=== PATIENT | male | born 1980 | race Caucasian/White ===

== ENCOUNTER 2023-01-12 14:54 | Outpatient (OUT) | payer OTHER, SELFPAY ==
[2023-01-12 15:26] LABS: Basophils Percent Auto 0.6 % (0.2-2.0); Eosinophils Absolute Auto 0.1 10^3/uL (0.0-0.7); Eosinophils Percent Auto 0.7 % (0.9-7.0); Hematocrit 40.1 % (42.0-54.0); Hemoglobin 12.8 g/dL (14.0-18.0); Immature Granulocytes Abs Auto 0.04 10^3/uL (0.00-0.03); Immature Granulocytes Pct Auto 0.6 % (0.0-0.5); Lymphocytes Absolute Auto 1.7 10^3/uL (1.2-3.8); Lymphocytes Percent Auto 24.5 % (20.5-60.0); Mean Corpuscular HGB Conc 31.9 g/dL (29.9-35.2); Mean Corpuscular Hemoglobin 30.3 pg (25.9-34.0); Mean Platelet Volume 8.9 fL (9.5-13.5); Monocytes Absolute Auto 0.3 10^3/uL (0.3-0.8); Neutrophils Absolute Auto 4.7 10^3/uL (1.4-6.5); Neutrophils Percent Auto 69.6 % (43.0-75.0); Platelet Count 305 10^3/uL (150-450); Red Blood Count 4.22 10^6/uL (4.70-6.10); Red Cell Distribution Width 13.2 % (11.0-15.0); White Blood Count 6.8 10^3/uL (4.0-11.0)
[2023-01-12 15:34] LABS: Alanine Aminotransferase 24 U/L (16-63); Albumin Globulin Ratio 1.1; Albumin Level 3.8 g/dL (3.4-5.0); Alkaline Phosphatase 58 U/L (46-116); Anion Gap 6.9; Aspartate Amino Transferase 12 U/L (15-37); BUN Creatinine Ratio 16.5; Bilirubin Total 0.2 mg/dL (0.2-1.0); Calcium 8.6 mg/dL (8.5-10.1); Carbon Dioxide 31.2 mmol/L (21.0-32.0); Chloride 104 mmol/L (98-107); Chol HDL Ratio 3.4; Cholesterol 215 mg/dL (<=200); Estimated GFR (African America >60 (>=60); Estimated GFR (Non-African Ame >60 (>=60); Globulin 3.5 g/dL; Glucose 114 mg/dL (74-106); HDL Cholesterol 64 mg/dL (40-60); Potassium 4.1 mmol/L (3.5-5.1); Sodium 138 mmol/L (136-145); Total Protein 7.3 g/dL (6.4-8.2); Triglycerides 72 mg/dL (<=150); VLDL CHOLESTEROL 14.4 mg/dL
== END 2023-01-12 14:55 | disposition home or self-care (01) ==
LOC: LAB 14:59
PROVIDERS: PCP Internal Medicine; Visit Provider Nurse Practitioner Family
DX: Z13.0 Encounter for screening for diseases of the blood and blood-forming organs and certain disorders involving the immune mechanism (principal); Z13.228 Encounter for screening for other metabolic disorders; Z13.220 Encounter for screening for lipoid disorders
CPT/HCPCS: 36415; 80053; 80061; 85025

== ENCOUNTER 2023-01-22 08:55 | Outpatient (OUT) | payer OTHER, SELFPAY ==
[2023-01-22 09:33] LABS: Estimated Average Glucose 105 mg/dL; Glycohemoglobin A1C 5.3 % (4.5-6.2)
[2023-01-22 10:29] LABS: Percent Iron Saturation 19.1 %
== END 2023-01-22 08:56 | disposition home or self-care (01) ==
LOC: LAB 08:57
PROVIDERS: PCP Internal Medicine; Visit Provider Internal Medicine
DX: D64.9 Anemia, unspecified (principal); R73.01 Impaired fasting glucose
CPT/HCPCS: 36415; 82607; 82728; 83036; 83540; 83550

== ENCOUNTER 2023-02-12 15:53 | Outpatient (OUT) | payer OTHER, SELFPAY ==
--- NOTE | 2023-02-12 | XR_ITS ---
The [address] [address] Patient Name: CANDIDO SCRUGGS MRN: [id number] date: 1980 Sex: M Assigned Patient Location: LAB Current Patient Location: LAB Accession/Order Number: [id number] Exam Date: 02/12/2023 16:00 Report Date: 02/12/2023 16:28 At the request of: FREDERICK JEAN-BAPTISTE Procedure: XR wrist LT min 3V EXAM: XR wrist LT min 3V HISTORY: M25.532, S69.92XA COMPARISON: None. TECHNIQUE: 3 views of the left wrist were obtained. FINDINGS: There is a small fracture fragment seen along the dorsal aspect of the wrist, possibly arising from the triquetrum, which may be acute or chronic in nature. There is no other evidence of an acute fracture or dislocation. Ulnar minus variance is present. The joint spaces are intact throughout. No other abnormal soft tissue calcifications are present. Soft tissue swelling is seen diffusely about the wrist. XR/XR wrist LT min 3V IMPRESSION: In the lateral view, a small fracture fragment can be noted dorsally. This may be acute or chronic in nature. There is no other evidence of an acute fracture or dislocation. Soft tissue swelling is seen diffusely about the wrist. If further evaluation is clinically indicated, perhaps a CT scan of the wrist would be helpful. Electronically authenticated by: PAULA ARIZMENDI Date: 02/12/2023 16:28
== END 2023-02-12 15:54 | disposition home or self-care (01) ==
LOC: LAB 15:54
PROVIDERS: PCP Nurse Practitioner Family; Visit Provider Nurse Practitioner Family
DX: M25.532 Pain in left wrist (principal); S69.92XA Unspecified injury of left wrist, hand and finger(s), initial encounter
CPT/HCPCS: 73110

== ENCOUNTER 2023-02-26 11:29 | Outpatient (OUT) | payer OTHER, SELFPAY ==
--- NOTE | 2023-02-26 12:16 | PM.CN ---
Consult Note: HPI Data of Consult Patient: new to practice Consult date: 02/26/23 Requesting Physician: Sada Yepez MD Primary Care Provider: FREDERICK JEAN-BAPTISTE Consult Narrative Reason for consult: mid back, low back, right leg pain Narrative: 42yom who presents for evaluation. Notes worsening midback pain, low back pain with radiation into right lower extremity. Undergoes chiropractic therapy, which he has done for >6 weeks. Has not had any recent imaging completed. Starting physical therapy tomorrow. Does not take pain medications. Denies adverse med side effects. cc:: CC: Sada Yepez MD Review of Systems ROS Status of ROS 10 or more systems reviewed and unremarkable except as noted in history and below Exam Narrative Exam Narrative: Psych-alert and oriented x 3. Attentive and appropriate, constitutionally normal, displays normal mood and affect per situation. There are no obvious deficits in memory, reasoning, or intellect.? Skin-no obvious rashes, bruising, erythema noted to the patient's area of pain.? Extremities- extremities are warm with minimal edema and palpable pulses. Lumbar-tenderness to palpation noted in the lumbar spine and paraspinal musculature. Pain is elicited with flexion, extension, and lateral rotation of the lumbar spine. Range of motion is diminished with these motions. Facet loading maneuvers are positive..? Strength-noted to be unremarkable with the exception of decreased strength rated at 4 out of 5 in right quadriceps femoris, anterior tibialis. Sensory-no notable sensory deficits in the bilateral lower extremities to touch or pinprick in all dermatomal distributions with the exception to decreased sensation to the right L4, 5 dermatomal distribution Coordination remains intact.? Gait remains non-antalgic. Assessment and Plan Assessment and Plan (1) Thoracic back pain: (2) Lumbago: (3) Lumbar stenosis with neurogenic claudication: Plan 42yom who presents for evaluation. Failed conservative measures, as noted above. Given worsening symptoms, I will have him undergo imaging, including thoracic XR, XR sacrum, and lumbar MRI without contrast for assessment. He is in agreement. Medications reviewed. He would like to avoid all pain medicines. Utilizes medical marijuana. I am in agreement with this. Follow up after imaging.
== END 2023-02-26 11:30 | disposition home or self-care (01) ==
LOC: PM 11:29
PROVIDERS: PCP Nurse Practitioner Family; Visit Provider Anesthesiology
DX: M54.6 Pain in thoracic spine (principal); M54.50 Low back pain, unspecified; M48.062 Spinal stenosis, lumbar region with neurogenic claudication
CPT/HCPCS: G0463

== ENCOUNTER 2023-02-27 08:14 | Outpatient (RCR) | payer OTHER, SELFPAY | END 2023-03-14 17:04 | disposition home or self-care (01) | LOC: PT 08:14 | PROVIDERS: PCP Nurse Practitioner Family; Visit Provider Nurse Practitioner Family | DX: M54.50 Low back pain, unspecified (principal) | CPT/HCPCS: 97110; 97112; 97161 ==

== ENCOUNTER 2023-03-07 09:20 | Outpatient (OUT) | payer OTHER, SELFPAY ==
--- NOTE | 2023-03-07 09:27 | XR_ITS ---
The [address] [address] Patient Name: CANDIDO SCRUGGS MRN: [id number] date: 1980 Sex: M Assigned Patient Location: [facility] Current Patient Location: [facility] Accession/Order Number: [id number] Exam Date: 03/07/2023 09:33 Report Date: 03/08/2023 08:05 At the request of: MARJORIERI GIEDRAITIS Procedure: XR thoracic spine 2V EXAMINATION: XR thoracic spine 2V HISTORY: Lumbar Stenosis, Thoracic Pain ; chronic mid back pain, right hip pain, sacral pain COMPARISON: No relevant comparison available. FINDINGS: BONES: Minimal anterior wedging and slight height reduction of T8, 9, 10 and 11 vertebral bodies. DISC SPACES: Multilevel mild narrowing of mid and lower thoracic spine. PARASPINOUS: Negative. No paraspinous abnormality is seen. OTHER: Negative. XR/XR thoracic spine 2V IMPRESSION: 1. Multilevel mild degenerative disc disease. 2. Slight height reduction of multiple lower thoracic vertebral bodies without increased trabecular density; suspect sequela of remote injury or developmental. Consider MRI for further evaluation. Electronically authenticated by: KEATON BAKER Date: 03/08/2023 08:05
--- NOTE | 2023-03-07 09:27 | XR_ITS ---
The [address] [address] Patient Name: CANDIDO SCRUGGS MRN: [id number] date: 1980 Sex: M Assigned Patient Location: [facility] Current Patient Location: Accession/Order Number: [id number] Exam Date: 03/07/2023 09:33 Report Date: 03/08/2023 07:55 At the request of: MARJORIERI GIEDRAITIS Procedure: XR sacrum coccyx min 2V EXAMINATION: XR sacrum coccyx min 2V HISTORY: Lumbar Stenosis, Thoracic Pain ; chronic right hip and sacral pain COMPARISON: No relevant comparison available. FINDINGS: SACRUM: No fracture, disruption of the sacral ala line, or cortical irregularity. COCCYX: No fracture or suspicious alignment. SOFT TISSUES: No widening of the sacroiliac joints. No radiopaque foreign body. OTHER: Disc space narrowing and degenerative osteophytes of the lumbar spine. XR/XR sacrum coccyx min 2V IMPRESSION: 1. Normal appearance of the sacrum and coccyx. 2. Degenerative disc disease of lumbar spine. Electronically authenticated by: KEATON BAKER Date: 03/08/2023 07:55
== END 2023-03-07 09:21 | disposition home or self-care (01) ==
LOC: RAD 09:21
PROVIDERS: PCP Nurse Practitioner Family; Visit Provider Anesthesiology
DX: M48.061 Spinal stenosis, lumbar region without neurogenic claudication (principal); M54.6 Pain in thoracic spine
CPT/HCPCS: 72070; 72220

== ENCOUNTER 2023-04-02 09:30 | Outpatient (OUT) | payer OTHER, SELFPAY ==
--- NOTE | 2023-04-02 09:41 | MR_ITS ---
The [place] [id number] Patient Name: CANDIDO SCRUGGS MRN: [facility]:[id number] date: 1980 Sex: M Assigned Patient Location: MRI Current Patient Location: MRI Accession/Order Number: [id number] Exam Date: 04/02/2023 09:50 Report Date: 04/02/2023 10:46 At the request of: BERNADETTE TREVINO Procedure: MR lumbar spine wo con MR lumbar spine wo con, 04/02/2023 9:50 AM EST INDICATION: Lumbar Stenosis M48.062 COMPARISON: X-ray of lumbar spine dated 04/24/2019 TECHNIQUE: Multiplanar, multisequential MRI images of lumbar spine were obtained without contrast. FINDINGS: For dictation purposes, the lowest complete disc space in the lumbar spine considered as L5-S1. There is normal physiologic lumbar lordosis. The vertebral height is preserved. The conus medullaris is at the level of L1. No signal abnormality within the visualized spinal cord is noted. Level of T12-L1 is unremarkable. At the level of L1-L2, there are disc bulge with moderate bilateral neuroforaminal narrowing and mild canal stenosis. At the level of L2-L3, there are disc bulge with mild to moderate bilateral neuroforaminal narrowing and mild canal stenosis. At the level of L3-4, there are disc bulge with moderate bilateral neuroforaminal narrowing and no canal stenosis. At the level of L4-5, there are disc bulge with moderate bilateral neuroforaminal narrowing and no canal stenosis. At the level of L5-S1, there are disc bulge with severe bilateral neuroforaminal narrowing and no canal stenosis. Bilateral S1 nerve roots are in close contact with the disc bulge in the lateral recesses. The paraspinal muscles are unremarkable. MR/MR lumbar spine wo con IMPRESSION: Moderate degenerative changes of lumbar spine in particular at L5-S1. Electronically authenticated by: LISA ESTRELLA Date: 04/02/2023 10:46
== END 2023-04-02 09:31 | disposition home or self-care (01) ==
LOC: MRI 09:34
PROVIDERS: PCP Nurse Practitioner Family; Visit Provider Anesthesiology
DX: M48.062 Spinal stenosis, lumbar region with neurogenic claudication (principal); M51.36 Other intervertebral disc degeneration, lumbar region
CPT/HCPCS: 72148

== ENCOUNTER 2023-04-10 11:03 | Outpatient (OUT) | payer OTHER, SELFPAY ==
[2023-04-10 12:48] LABS: Prostate Specific Antigen Scrn 0.46 ng/mL (<=4.00)
== END 2023-04-10 11:04 | disposition home or self-care (01) ==
LOC: LAB 11:05
PROVIDERS: PCP Nurse Practitioner Family; Visit Provider Physician Assistant
DX: Z12.5 Encounter for screening for malignant neoplasm of prostate (principal)
CPT/HCPCS: 36415; G0103

== ENCOUNTER 2023-09-19 09:30 | Outpatient (OUT) | payer OTHER, SELFPAY ==
--- NOTE | 2023-09-19 09:36 | XR_ITS ---
The [address] [address] Patient Name: CANDIDO SCRUGGS MRN: [id number] date: 1980 Sex: M Assigned Patient Location: [facility] Current Patient Location: Accession/Order Number: [id number] Exam Date: 09/19/2023 09:38 Report Date: 09/21/2023 09:07 At the request of: FREDERICK JEAN-BAPTISTE Procedure: XR shoulder RT min 2V PROCEDURE: XR shoulder RT min 2V HISTORY: Right Shoulder Pain, Muscle Spasm COMPARISON: None. FINDINGS: BONES:Prominent degenerative enthesophyte projecting caudally from the distal end of the clavicle. Unremarkable humeral head and glenohumeral joint. SOFT TISSUES:No visible soft tissue swelling. EFFUSION:None visible. OTHER: Negative. XR/XR shoulder RT min 2V IMPRESSION: 1. Degenerative changes of the acromioclavicular joint which would predispose to rotator cuff injury. 2. No acute bone abnormality. Electronically authenticated by: KEATON BAKER Date: 09/21/2023 09:07
== END 2023-09-19 09:31 | disposition home or self-care (01) ==
LOC: RAD 09:31
PROVIDERS: PCP Nurse Practitioner Family; Visit Provider Nurse Practitioner Family
DX: M25.511 Pain in right shoulder (principal); M62.838 Other muscle spasm; M19.011 Primary osteoarthritis, right shoulder
CPT/HCPCS: 73030

== ENCOUNTER 2024-08-03 12:54 | Emergency (ER) | payer OTHER, SELFPAY ==
[2024-08-03 12:58] VITALS: BP 134/91; PULSE 86; TEMP 36.7; O2SAT 100; BMI 26.3
--- OUTSIDE RECORDS SUMMARY | 2024-08-03 13:01 | XMS_ITS | CCD ---
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 Name Role Phone BENITA, DR CASTRO Attending Unavailable BENITA, DR CASTRO Consulting Unavailable MISC, DR JHAVERI Primary Care Unavailable BENITA, DR CASTRO Admitting Unavailable STRAWSER, ISABEL Consulting Unavailable HAN, DR WILKINSON Consulting Unavailable HAN, DR WILKINSON Admitting Unavailable HOY, DR REED Primary Care Unavailable HAN, DR WILKINSON Attending Unavailable Trev, DR Berry Consulting Unavailable Norma Dobbins Unavailable [phone] MD Jackie Britton Attending Provider [phone] MARTIN Dobbins Primary Care Provider Lucho REA, Sada Schrader Attending Unavailable MARTIN Dobbins Primary Care Provider Asaad, Imad Unavailable NORMA DOBBINS Primary Care Physician [phone] NORMA DOBBINS Primary Care Physician DO Minh Short Primary Care Provider [phone] MD Kenyon Sevilla Attending Provider Yessica Larson Admitting Unavailable Yessica Larson Attending Unavailable Yessica Larson Referring Unavailable NORMA LARA Attending Unavailable NORMA LARA Admitting Unavailable Alfredo JOSE Attending Unavailable Willi CATHERINE Attending Unavailable NORMA LARA Attending Unavailable NORMA DOBBINS Referring Unavailab le Yessica Larson Attending Unavailable Yessica Larson Referring Unavailable Asaad, Imad Attending Unavailable Norma Dobbins Primary Care Unavailable Asaad, Imad Admitting Unavailable Asaad, Imad Admitting Unavailable Asaad, Imad Attending Unavailable Norma Dobbins Primary Care Unavailable Kenyon Sevilla Admitting Unavailab Kenyon Saenz Attending UnavailMinh Joe Primary Care Unavailable Han DO Wilkinson Primary Care Provider MD Kenyon Sevilla Attending Provider Allergies Allergy Classification Reported Allergen(s) Allergy Type Date of Onset Reaction(s) Facility (3 sources) Morphine Drug Allergy 6 Rash [facility] Repository (1 source) No Known Medication Allergies; Translations: [No Known Medication Allergies] Propensity to adverse reactions (disorder) [facility] Repository (1 source) Morphine Drug Allergy [address] [place] [address] Repository Medications Current Medications Medication Drug Class(es) Dates Sig (Normalized) Sig (Original) tamsulosin hydrochloride 0.4 mg oral capsule (8 sources) alpha-Adrenergic Ibeth Start: 07-25-2023 End: 07-11-2024 take 1 capsule by mouth once daily Tamsulosin 0.4 mg capsule Active 0.4 MG PO Daily 90 90 July 11, 2024 10:31am Start: 05-28-2023 take 1 capsule by [facility] once daily tamsulosin 0.4 mg Cap 0.4 mg = 1 cap(s), Oral, Daily, # 30 cap(s), Refills(s) 11, Pharmacy: [facility]/pharmacy #[id number], 176, cm, 03/27/23 9:27:00 EST, Height/Length Dosing, 93, kg, 03/27/23 9:27:00 EST, Weight Dosing Start Date: 05/28/23 Status: Ordered Completed/Discontinued Medications Medication Drug Class(es) Dates Sig (Normalized) Sig (Original) acetaminophen 325 mg / HYDROcodone bitartrate 5 mg oral tablet (7 sources) Opioid Agonist Start: 09-15-2019 End: 06-03-2021 take 1 tablet by mouth every eight hours as needed for pain Hydrocodone-Acetam inophen ([place]) 5-325 mg tablet Discontinued 1 TAB PO Q8H as needed for pain 6 September 15, 2019 June 03, 2021 1:16pm amoxicillin 875 mg / clavulanate 125 mg oral tablet (8 sources) Penicillin-class Antibacterial Start: 11-16-2023 End: 11-27-2023 take 1 tablet by mouth twice daily Amoxicillin-Pot Clavulanate 875-125 mg tablet Discontinued 1 TAB PO Twice daily 02 03November 15, 2023 11:00pm November 27, 2023 1:02pm Start: 08-27-2023 End: 09-17-2023 take 1 tablet by mouth twice daily Amoxicillin-Pot Clavulanate 875-125 mg tablet Discontinued 1 TAB PO Twice daily 02 03August 26, 2023 11:00pm September 17, 2023 9:30am doxazosin 4 mg oral tablet (20 sources) alpha-Adrenergic Ibeth Start: 03-06-2023 End: 07-25-2023 take 1 tablet by mouth once daily Doxazosin 4 mg tablet Discontinued 4 MG PO Daily March 05, 2023 11:00pm July 25, 2023 7:41am Start: 03-06-2023 doxazosin 2 mg Tab 30 EA, 0 Refill(s), TAKE 1 TABLET BY MOUTH EVERY DAY FOR 30 DAYS, Refills(s) 0 Start Date: 03/22/23 Status: Ordered ketoconazole 20 mg/ml topical cream (20 sources) Azole Antifungal Start: 07-24-2023 End: 07-25-2023 Ketoconazole 2 % cream Discontinued 1 APPLIC TOPICAL Daily July 23, 2023 11:00pm July 25, 2023 7:41am Start: 03-22-2023 ketoconazole T op 2% Crm Refill(s) 0, 60 gm, 0 Refill(s), APPLY TO AFFECTED AREA TWICE A DAY Start Date: 03/22/23 Status: Ordered Ketoconazole 2 % 1 application Externally Once a day Active methylPREDNISolone 4 mg oral tablet (9 sources) Corticosteroid Start: 07-25-2023 End: 09-17-2023 take 1 tablet by mouth once Methylprednisolone (Medrol (Nathan)) 4 mg tablets,dose pack Discontinued 0 PO per package directions 01 11July 24, 2023 11:00pm September 17, 2023 9:30am PO PER PKG DIR methylPREDNISolo ne 4 MG as directed Orally daily for 6 days Active mirtazapine 15 mg oral tablet (7 sources) Start: 05-30-2017 End: 06-03-2021 take 1 tablet by mouth once daily at bedtime Mirtazapine (Remeron) 15 mg Tablet Discontinued 15 MG PO Daily at bedtime May 30, 2017 12:00am June 03, 2021 1:16pm 24 hr paliperidone 3 mg extended release oral tablet (20 sources) Atypical Antipsychotic Start: 03-06-2023 End: 07-25-2023 take 1 tablet by mouth once daily Paliperidone (Invega) 3 mg tablet extended release 24 hr Discontinued 3 MG PO Daily March 05, 2023 11:00pm July 25, 2023 7:41am sertraline 50 mg oral tablet (20 sources) Serotonin Reuptake Inhibitor Start: 03-06-2023 End: 07-25-2023 take 1 tablet by mouth once daily Sertraline 50 mg tablet Discontinued 50 MG PO Daily March 05, 2023 11:00pm July 25, 2023 7:41am tiZANidine 2 mg oral tablet (8 sources) Central alpha-2 Adrenergic Agonist Start: 07-25-2023 End: 03-05-2024 take 1 tablet by mouth every eight hours as needed Tizanidine 2 mg tablet Discontinued 2 MG PO Every 8 hours as needed for muscle spasticity 60 September 17, 2023 10:34am March 05, 2024 8:06am tobramycin 3 mg/ml ophthalmic solution (7 sources) Aminoglycoside Antibacterial Start: 06-03-2021 End: 03-06-2023 Tobramycin 0.3 % drops Discontinued 2 DROPS EAR-RIGHT Four times daily 09 15June 03, 2021 12:00am March 06, 2023 8:16am Start: 06-03-2021 End: 03-06-[address] OPS EAR-RIGHT Four times daily 09 15June 03, 2021 1:00am March 06, 2023 9:16am traZODone hydrochloride 100 mg oral tablet (14 sources) Serotonin Reuptake Inhibitor Start: 07-24-2023 End: 07-25-2023 take 1 tablet by mouth once daily at bedtime Trazodone 100 mg tablet Discontinued 100 MG PO Daily at bedtime July 23, 2023 11:00pm July 25, 2023 7:41am take 1 tablet by zachariah every twenty-four hours traZODone HCl 100 MG 1 tablet at bedtime Orally Once a day PRN Active Problems Active Problems Problem Classification Problem Date Documented Date Episodic/Chronic Abdominal pain (13 sources) Generalized abdominal pain; Translations: [Generalized abdominal pain] Episodic Anxiety disorders (20 sources) Posttraumatic stress disorder; Translations: [Post-traumatic stress disorder, unspecified] 07-24-2023 Chronic Biliary tract disease (13 sources) Cholecystitis; Translations: [Cholecystitis, unspecified] Episodic Calculus of urinary tract (5 sources) Kidney stone; Translations: [Calculus of kidney] Onset: 03-27-2023 Episodic Deficiency and other anemia (4 sources) Anemia, unspecified; Translations: [Low hemoglobin] Episodic Deficiency and other anemia (7 sources) Hemoglobin low; Translations: [Anemia, unspecified] Episodic Deficiency and other anemia (12 sources) Iron deficiency anemia; Translations: [Iron deficiency anemia, unspecified] 07-24-2023 Episodic Diabetes mellitus without complication (1 source) Impaired fasting glucose Episodic Disorders of teeth and jaw (7 sources) Toothache; Translations: [Other specified disorders of teeth and supporting structures] 08-27-2023 Episodic Essential hypertension (11 sources) Essential (primary) hypertension; Translations: [Essential hypertension] Onset: 06-12-2022 03-22-2023 Chronic Fracture of upper limb (7 sources) Fracture of metacarpal bone; Translations: [Unspecified fracture of fifth metacarpal bone, right hand, initial encounter for closed fracture] 09-15-2019 Episodic Genitourinary symptoms and ill-defined conditions (4 sources) Urge incontinence of urine 03-27-2023 Chronic Genitourinary symptoms and ill-defined conditions (13 sources) Dysuria; Translations: [Unspecified symptoms and signs involving the genitourinary system] Onset: 06-10-2022 Episodic Hepatitis (20 sources) Viral hepatitis B without hepatic coma; Translations: [Unspecified viral hepatitis B without hepatic coma] Onset: 02-01-2023 Episodic Hyperplasia of prostate (1 source) Benign prostatic hypertrophy with outflow obstruction; Translations: [Benign prostatic hyperplasia with lower urinary tract symptoms] Onset: 05-28-2023 Chronic Inflammation; infection of eye (except that caused by tuberculosis or sexually transmitteddisease) (7 sources) Conjunctivitis; Translations: [Unspecified conjunctivitis] 06-03-2021 Episodic Mood disorders (20 sources) Mood disorder; Translations: [Unspecified mood [affective] disorder] Onset: 09-17-2017 05-30-2017 Chronic Nutritional deficiencies (1 source) Iron deficiency Episodic Osteoarthritis (3 sources) Arthritis of shoulder region joint; Translations: [Primary osteoarthritis, right shoulder] 09-21-2023 Chronic Other aftercare (1 source) Other bed bug exterminator (current) drug therapy; Translations: [OTH RETIREMENT CURRENT DRUG THERAPY] Onset: 06-12-2022 Episodic Other connective tissue disease (3 sources) Other enthesopathies, not elsewhere classified; Translations: [Disorders of bursae and tendons in shoulder region, unspecified] Episodic Other connective tissue disease (5 sources) Spasm; Translations: [Other muscle spasm] 07-25-2023 Episodic Other connective tissue disease (5 sources) Tendonitis of right shoulder; Translations: [Other enthesopathies, not elsewhere classified] 07-25-2023 Episodic Other connective tissue disease (3 sources) Other muscle spasm; Translations: [Spasm of muscle] 07-25-2023 Episodic Other diseases of bladder and urethra (20 sources) Overactive bladder; Translations: [Overactive bladder] 03-27-2023 Chronic Other diseases of bladder and urethra (3 sources) Overactive bladder; Translations: [Hypertonicity of bladder] Chronic Other diseases of bladder and urethra (1 source) Detrusor overactivity; Translations: [Overactive bladder] Onset: 05-28-2023 Chronic Other injuries and conditions due to external causes (3 sources) Heat exposure; Translations: [Effect of heat and light, unspecified, initial encounter] 11-27-2023 Episodic Other injuries and conditions due to external causes (1 source) Effect of heat and light, unspecified, initial encounter; Translations: [Unspecified effects of heat and light] 11-27-2023 Episodic Other male genital disorders (4 sources) Male erectile dysfunction, unspecified; Translations: [MALE ERECTILE DYSFUNCTION UNS] Onset: 03-08-2022 Chronic Other nervous system disorders (13 sources) Chronic pain; Translations: [Other chronic pain] 07-24-2023 Chronic Other non-traumatic joint disorders (4 sources) Pain in right shoulder; Translations: [Right shoulder pain] 09-17-2023 Episodic Other screening for suspected conditions (not mental disorders or infectious disease) (17 sources) Liver function tests abnormal; Translations: [Other specified abnormal findings of blood chemistry] Onset: 03-27-2023 Episodic Screening and history of mental health and substance abuse codes (1 source) Personal history of nicotine dependence; Translations: [PERSONAL HISTORY OF NICOTINE DEPEND] Onset: 06-12-2022 Episodic Spondylosis; intervertebral disc disorders; other back problems (20 sources) Acute back pain with sciatica; Translations: [Lumbago with sciatica, right side] Episodic Substance-related disorders (12 sources) Polysubstance dependence; Translations: [Other psychoactive substance dependence, uncomplicated] 05-30-2017 Chronic Suicide and intentional self-inflicted injury (7 sources) Suicidal thoughts; Translations: [Suicidal ideations] 05-30-2017 Episodic Superficial injury; contusion (7 sources) Contusion of chest; Translations: [Contusion of unspecified front wall of thorax, initial encounter] 05-30-2017 Episodic Unclassified (4 sources) Asymptomatic microscopic hematuria 03-27-2023 Unclassified (4 sources) Patient encounter status 03-27-2023 Past or Other Problems Problem Classification Problem Date Documented Da te Episodic/Chronic Deficiency and other anemia (3 sources) Iron deficiency anemia, unspecified; Translations: [Iron deficiency anemia] Onset: 03-06-2023 Episodic Immunizations and screening for infectious disease (1 source) Contact with and (suspected) exposure to viral hepatitis; Translations: [CONTACT W/ AND EXPOSURE TO VIRAL HEP] Onset: 03-12-2022 Episodic Other lower respiratory disease (1 source) Pleurodynia; Translations: [PLEURODYNIA] Onset: 03-12-2022 Episodic Results Test Name Value Interpretation Reference Range Facility [facility] Documents[facility] 08-28-2023 Senior Living Documents [id number]#1.00TIFF Normal [facility] Documents [id number]#1.00TIFF Normal [facility] Physician Orderon 05-30-2023 Physician Order [id number]#1.00TIFF Normal [facility] IntraOperative Documentson 0 05-29-2023 IntraOperative Documents [id number]#1.00TIFF Normal [facility] Consent for Procedure/Surger yon 05-28-2023 Consent for Procedure/Surgery [id number]#1.00TIFF Normal [facility] Consent for Procedure/Surgery [id number]#1.00TIFF Normal [facility] Consent for Treatmenton 05-14 Consent for Treatment [id number]#1.00TIFF Normal [facility] Inpatient Patient Summaryon 05-28-2023 Inpatient Patient Summary [address] [address] Clinical Summary Person Information Name: CANDIDO SCRUGGS Age: 42 Years : 1980 Sex: Male PCP: NORMA DOBBINS CNP Marital Status: Single Race: White Ethnicity: Non- or Language: [place] Visit Id: Visit Reason: LUTS, MICRO-HEMATURIA Speciality: Acuity: Enc Type: Outpatient Med Service: Surgery Arrival: 05/28/2023 09:59:24 Discharge: Dispo Type: Address: [address] [place] [address] [phone] Provider Notes: Diagnosis: Asymptomatic microscopic hematuria; Benign prostatic hyperplasia (BPH) with urinary urgency; Detrusor overactivity; Dysfunctional voiding of urine; Urgency of urination Problems Active Lower urinary tract symptoms (LUTS) Asymptomatic microscopic hematuria Kidney stones Screening PSA (prostate specific antigen) Hepatitis B Essential hypertension (06/12/2022) Depressive disorder (09/17/2017) Smoking Status: Functional Status: Sensory Deficits: History of Falls: Mobility Assistance Prior to Admission: ADLs: Current Level of Assistance for Self-Care/Mobility: Cognitive Status: Allergies No Known Medication Allergies Laboratory or Other Results This Visit (last charted value for your 05/28/2023 visit) No Laboratory or Other Results This Visit Measurements: Height: Weight: Blood Pressure: Not Valued / Not Valued BMI: Procedures No Procedures Documented Immunizations No Immunizations Documented This Visit Final Med List: ketoconazole topical (ketoconazole Top 2% Crm) 60 gm, 0 Refill(s), APPLY TO AFFECTED AREA TWICE A DAY. paliperidone (paliperidone 3 mg oral tablet, extended release) 30 EA, 0 Refill(s), TAKE 1 TABLET BY MOUTH EVERY MORNING. sertraline (sertraline 50 mg Tab) 30 EA, 0 Refill(s), TAKE 1 TABLET BY MOUTH EVERY DAY. tamsulosin (tamsulosin 0.4 mg Cap) 1 Capsules By Mouth every day. Refills: 11. Care Team Members: Attending Physician: Yessica Larson MD Consulting Physician: Referring Physician: Yessica Larson MD Follow up: With: Address: When: Yessica Larson [address], [place] [address] [phone] Business (1) [address], [place] [address], [address] [address] [phone] Business (1) Comments: Office to schedule follow up in 4-6 wks Type Location Start Finish State URO Office Visit [facility] EU Eve 06/27/2023 10:45 AM 06/27/2023 11:00 AM Confirmed Patient Education Information: EU - Cystoscopy Discharge Instructions (CUSTOM) [facility] IntraOperative Documentson 0 05-28-2023 IntraOperative Documents [id number] [facility] Main OR Intraoperative Recor don 05-28-2023 Main OR Intraoperative Record IntraOp Document Type FTURO Summary Primary Physician: Yessica Larson MD Finalized Date/Time: 05/28/23 11:53:08 Pt. Name: CANDIDO SCRUGGS/Sex: 1980 Male Med Rec #: [id number] Physician: Yessica Larson MD Financial #: [id number] Pt. Type: O Room/Bed: / Admit/Disch: 05/28/23 09:59:24 - Institution: Case Times FTURO Entry 1 Patient Times In Room 05/28/23 11:33:00 Out Room 05/28/23 11:55:00 Procedure Times Start 05/28/23 11:45:00 Stop 05/28/23 11:50:00 Anesthesia Times Last Modified By: Elena OLEARY, Sunita Villatoro 05/28/23 11:50:36 Case Attendance FTURO Entry 1 Entry 2 Entry 3 Case Attendee Neo REA, Yessica Parker RN, Cata Ramirez Role Performed Surgeon - Primary Manager User Interface - Primary Scrub - Primary Time In 05/28/23 11:33:00 05/28/23 11:33:00 05/28/23 11:33:00 Time Out 05/28/23 11:55:00 05/28/23 11:55:00 05/28/23 11:55:00 Procedure CYSTOSCOPY LOCAL(.) CYSTOSCOPY LOCAL(.) CYSTOSCOPY LOCAL(.) Comments Last Modified By: Elena OLEARY, Sunita Parker RN, Sunita Parker RN, Sunita Villatoro 05/28/23 Teodora Villatoro 05/28/23 Teodora Villatoro 05/28/23 11:50:42 11:50:42 11:50:42 Surgical Procedures FTURO Entry 1 Procedure Description Procedure CYSTOSCOPY LOCAL Modifiers . Surgeon Description CYSTOSCOPY LOCAL Primary Procedure Yes Primary Surgeon Yessica Larson MD Start 05/28/23 11:45:00 Stop 05/28/23 11:50:00 Anesthesia Type Local Surgical Service Urology Wound Class 2 - Clean-Contaminated Last Modified By: Sunita Parker RN 05/28/23 11:50:40 General Case Data FTURO Pre-Care Text: Classifies surgical wound, implements aseptic technique, initiates traffic control Entry 1 Case Information OR URO 1 FT Case Level None Wound Class 2 - Clean-Contaminated Specialty Urology Preop Diagnosis LUTS, MICRO-HEMATURIA Postop Same As Preop Yes Postop Diagnosis LUTS, MICRO-HEMATURIA Outcomes Met? Yes Last Modified By: Elena OLEARY, Sunita Villatoro 05/28/23 11:45:55 Post-Care Text: The patient is free from signs and symptoms of infection EU IntraOp - FTURO Pre-Care Text: Implements protective measures prior to operative or invasive procedure, confirms identity before the operative or invasive procedure, verifies operative procedure, surgical site, and laterality Entry 1 EU Perioperative Protocols Procedure(s) CYSTOSCOPY LOCAL(.) Patient Identity Birthday, ID Band Verified (select at Check, Patient least 2): Participation Consents / H and P HandP, Surgery/Procedure Operative Site N/A Verified Consent Marking Verified Surgical Site Yes Laterality Verified n/a Verified Procedure Verified Yes Correct Patient Yes Position Verified Availability Equipment, Medication Time Out Yessica Larson MD, Verified (If Participants Sunita Parker RN Applicable) Aníbal Knox Laura C Time Out Complete 05/28/23 11:44:00 Allergies Reviewed? Yes Allergies Reviewed Self/Patient With Body Position Supine Prep Area PENIS Prep Agents Betadine Solution Skin. Condition Unable to Visualize Description CLOTHED Additional None Specimens Collected Vitals - EU Blood Pressure 110/67 Pulse 73 bpm Respirations 16 br/min SPO2 99 % IandO - EU Outcomes Met? Yes Last Modified By: Sunita Parker RN 05/28/23 11:46:02 Post-Care Text: The patient is free from signs and symptoms of injury caused by extraneous objects Sign Out FTURO Entry 1 Before Patient Leaves OR Nurse verbally Yes Nurse verbally Yes confirms with the confirms with the team the name of team that the procedure(s) instrument, sponge, recorded and needle counts are correct (or N/A) Nurse verbally n/a Nurse verbally Yes confirms with the confirms with the team how the team whether there specimen is labeled are any equipment (including patient problems to be name), if applicable addressed Sign Out Complete 05/28/23 11:50:00 Last Modified By: Sunita Parker RN 05/28/23 11:50:38 Case Comments Finalized By: Sunita Parker RN Document Signatures Signed By: Sunita Parker RN 05/28/23 11:53 Normal [facility] Main OR Preoperative Recordo n 05-28-2023 Main OR Preoperative Record Holding Area Document Type FTURO Summary Primary Physician: Yessica Larson MD Finalized Date/Time: 05/28/23 11:25:36 Pt. Name: CANDIDO SCRUGGS./Sex: 1980 Male Med Rec #: [id number] Physician: Yessica Larson MD Financial #: [id number] Pt. Type: O Room/Bed: / Admit/Disch: 05/28/23 09:59:24 - Institution: Case Times Holding FTURO Pre-Care Text: Verifies consent for planned procedure, identifies individual values and wishes concerning care, includes family members in perioperative teaching Secures patient's records' belongings, and valuables, maintains patient's dignity and privacy, and maintains patient confidentiality Entry 1 In Holding 05/28/23 11:24:00 Outcomes Met? Yes Last Modified By: ODALYS Peralta RN, Ruthann 05/28/23 11:24:13 Post-Care Text: The patient participates in decisions affecting his or her perioperative plan of care The patient's right to privacy is maintained Surgery Checklist FTURO Entry 1 Patient Birthday, ID Band Procedure History and Physical, Identification: Check, Patient Verification: Surgical Consent, With Participation Patient NPO after Midnight: n/a Personal Items: Glasses Personal Items clothes Limitations: none Comment: Complaints of Pain: No Skin Integrity Unable to Visualize Vitals - EU Blood Pressure Pulse Respirations SPO2 Additional None RN Reviewed Yes Specimens Collected Last Modified By: ODALYS Peralta RN, Ruthann 05/28/23 11:25:35 Finalized By: ODALYS Peralta RN, Ruthann Document Signatures Signed By: ODALYS Peralta RN, Ruthann 05/28/23 11:25 Normal [facility] Operative Reporton Operative Report Patient: VEMLA SCRUGGS TTHEW A Age: 42 years Sex: Male : 1980 Associated Diagnoses: None Author: Yessica Larson MD Procedure Operative Information Details: Date/ Time: 05/28/2023 11:20:00. Pre-Op Dx: Benign prostatic hyperplasia (BPH) with urinary urgency ([id number] N40.1, Discharge, Medical), Asymptomatic microscopic hematuria ([id number] R31.21, Discharge, Medical). Post-Op Dx: Same. Anesthesia Type: Local. Procedure: Local Cystoscopy. Complications: None. Risks/Benefits/Informed Consent: Surgical risks, benefits, details of the procedure have been explained to the patient, Full informed consent has been obtained. Intraoperative Information Prepped: Patient is brought back to the endoscopy suite, Patient is placed in supine position, Patient prepped in the usual fashion with Betadine solution, 2% Xylocaine Jelly is placed per Urethra, After waiting several minutes the Cystoscope is introduced. The Urethra is: Normal. The Prostatic Urethra is: Mild to moderate bilobar hypertrophy. Not significantly obstructing. The Bladder is: Normal, Trabeculated Mild (1), No bladder tumors, lesions, stones or foreign bodies.. The ureteral orifices: Show efflux of clear urine. Devices Implanted: None. Removal: Cystoscope is removed. Postoperative Information Discharge: No evidence of bladder tumors or lesions. Urine cytology negative. Patient did not tolerate procedure well. Having significant bladder pain during cystoscopy, Difficulty relaxing. See separate clinic note for further details. Briefly: Discussed findings of urodynamics showing small bladder capacity, detrusor overactivity and high pressure low flow consistent with obstruction, as well as inappropriate EMG activity during voiding. However prostate is not significantly obstructive. Suspect dysfunctional voiding. Patient has researched it on his own and agrees that pelvic floor physical therapy would be beneficial. - Referral for pelvic floor physical therapy with biofeedback at [facility] per patient request -Start tamsulosin 0.4 mg daily. Stop doxazosin. Risks/ benefits discussed. -Follow-up in 4 to 6 weeks. Normal [facility] Comment on above: Result Comment: Elec tronically Signed By: Yessica Larson MD\.br\Date and Time Signed: 05/28/23 12:23 EST Outpatient Surgery Discharge Instructionon 05-28-2023 Outpatient Surgery Discharge Instruction [place] [id number] Patient Discharge Instructions PERSON INFORMATION Name: CANDIDO SCRUGGS Date of : 1980 Current Date: 05/28/2023 11:59:12 PHYSICIANS Admitting Physician: Yessica Larson MD Comment: Discharge Diagnosis: Asymptomatic microscopic hematuria; Benign prostatic hyperplasia (BPH) with urinary urgency; Detrusor overactivity; Dysfunctional voiding of urine; Urgency of urination CANDIDO SCRUGGS has been given the following list of follow-up instructions, prescriptions, and patient education materials: IF UNABLE TO CONTACT YOUR PHYSICIAN AND YOU FEEL IT IS AN EMERGENCY, GO TO THE NEAREST EMERGENCY ROOM OR CALL 911 Follow up: With: Address: When: Yessica Larson [address] [place] [address] [phone] Business (1) [address], [facility] [address] [place] [address] [phone] Business (1) Comments: Office to schedule follow up in 4-6 wks Type Location Start [facility] URO Office Visit [facility] [place] 06/27/2023 10:45 AM 06/27/2023 11:00 AM Confirmed Comment: PATIENT EDUCATION INFORMATION Instructions: Cystoscopy ? Voiding after the procedure: there may be some pain, burning, urgency, frequency and blood tinged urine following the procedure. These symptoms usually resolve within 2-5 days. Drink the amount of fluid it takes to keep the urine pink to yellow or clear in color. Drinking enough water and fluids will help to ease any discomfort after your procedure. ? If you are having problems that seem out of the ordinary, please call. ? If unable to contact your physician and you feel it is an emergency, go to the nearest emergency room or call 911 ? Diet ? you may resume your normal diet. ? Activity ? you may resume your normal activities ? Call if you have a fever over 100 degrees. ISHEBA MATTHEW A, have received the attached patient education materials/instructions and have verbalized understanding: May we do a follow up call? Yes No I was present when discharge instructions were given Patient Signature Date Clinican/Nurse Signature Date You may receive a survey from Lay[employer] asking you to rate your care experience. Your feedback is important and will help us understand what we do well and how we can improve the quality of care we provide to you, your loved ones and our community. It?s an honor to serve you. Thank you for choosing [facility] Normal [facility] Progress Note-Physicianon Progress Note-Physician Patient: CANDIDO SCRUGGS Age: 42 years Sex: Male : 1980 Associated Diagnoses: None Author: Neo REA, Yessica Ruiz Health Status Allergies: Allergic Reactions (Selected) No Known Medication Allergies, Allergies (1) Active Reaction No Known Medication Allergies None Documented Current medications: (Selected) Prescriptions Prescribed tamsulosin 0.4 mg Cap: 0.4 mg = 1 cap(s), Oral, Daily, # 30 cap(s), Refills(s) 11, Pharmacy: [facility]/pharmacy #[id number], 176, cm, 03/27/23 9:27:00 EST, Height/Length Dosing, 93, kg, 03/27/23 9:27:00 EST, Weight Dosing Documented Medications Documented ketoconazole Top 2% Crm: Refill(s) 0, 60 gm, 0 Refill(s), APPLY TO AFFECTED AREA TWICE A DAY paliperidone 3 mg oral tablet, extended release: 30 EA, 0 Refill(s), TAKE 1 TABLET BY MOUTH EVERY MORNING, Refills(s) 0 sertraline 50 mg Tab: 30 EA, 0 Refill(s), TAKE 1 TABLET BY MOUTH EVERY DAY, Refills(s) 0 Results Review Urodynamics Evaluation Uroflow:Inadequate test given <150 mL volume voided -Voided 70, PVR 10 ml -Blunted, jagged, prolonged curve Filling phase: Early first sensation 66mL. Desire sensation early at 86 mL. Bladder capacity small 171 mL. Storage: Sensation: Abnormal Compliance: Normal Capacity: Low Incontinence/Leak Test: Stress Urinary Incontinence: Absent Detrusor Overactivity: Present Urge Urinary Incontinence: Absent Voiding Phase: Qmax: 6.8 mL/sec Qav.5 mL/sec Pressure at peak flow: 108.5 cm H20 Detrusor Function: Adequate Bladder Outlet Obstruction: Yes Nomogram obstruction: Yes EMG: EMG: Abnormal Evidence of DESD: Yes Summary and Recommendations: Small bladder capacity, early sensation with detrusor overactivity. High pressure, low flow consistent with bladder outlet obstruction likely secondary to dysfunctional voiding given significant EMG activity during voiding phase. Impression and Plan Assessment and Plan: Diagnosis: Urgency of urination (GLC64-CQ R39.15, Discharge, Medical), Dysfunctional voiding of urine (LGG09-AW N39.8, Discharge, Medical), Detrusor overactivity (LQD47-XL N32.81, Discharge, Medical), Benign prostatic hyperplasia (BPH) with urinary urgency (QKS42-DX N40.1, Discharge, Medical), Asymptomatic microscopic hematuria (NKZ90-RI R31.21, Discharge, Medical). 1. BPH with LUTS, dysfunctional voiding Patient with weak stream, urgency and frequency (both Detrol and doxazosin 2 mg initially helped but wore off after a couple months) PSA 03/08/22 - 0.59 04/10/23 - 0.46 Discussed findings of urodynamics showing small bladder capacity, detrusor overactivity and high pressure low flow consistent with obstruction, as well as inappropriate EMG activity during voiding. However prostate is not significantly obstructive. Suspect dysfunctional voiding. Patient has researched it on his own and agrees that pelvic floor physical therapy would be beneficial. We also discussed trial of medical therapy prior to procedures. Patient agrees - Referral for pelvic floor physical therapy with biofeedback at [facility] per patient request -Start tamsulosin 0.4 mg daily. Stop doxazosin. Risks/ benefits discussed. -Follow-up in 4 to 6 weeks 2. AMH -low risk 05/2022 5-10 RBC (epi cells also) CT AP neg for hydro. Tiny nonobstructive bilateral renal calculi. 03/27/23 - Urine cytology negative 05/28/2023 cystoscopy?no evidence of bladder tumors or lesions -Continue routine annual UA monitoring Normal [facility] Comment on above: Result Comment: Elec tronically Signed By: Neo REA, Yessica Ruiz\.br\Date and Time Signed: 05/28/23 12:33 EST Insurance Correspondenceon 0 05-25-2023 Insurance Correspondence [id number]#1.00TIFF Normal [facility] Lab Reportson 05-01-2023 Lab Reports [id number]#1.00TIFF Normal [facility] Ambulatory Visit Summaryon 1 05-30-2022 Ambulatory Visit Summary CANDIDO SCRUGGS :1980 Visit Date:03/27/2023 Ambulatory Visit Instructions Your Diagnosis Lower urinary tract symptoms (LUTS) Asymptomatic microscopic hematuria Screening PSA (prostate specific antigen) Kidney stones Tests Performed Urnls Dip Stick Auto w/o Microscopy POC 07665 Your Care Team Attending Physician - NORMA LARA PA-C Primary Care Physician - NORMA DOBBINS CNP Referring Physician - NORMA DOBBINS CNP This Is Your Medications List Contact prescribing physician if questions or concerns doxazosin (doxazosin 2 mg Tab) ketoconazole topical (ketoconazole Top 2% Crm) paliperidone (paliperidone 3 mg oral tablet, extended release) sertraline (sertraline 50 mg Tab) Procedures Performed Finger, Jaw. What to do next You Need to Schedule the Following Appointments Follow Up with Neo REA, Yessica Ruiz, URL, URO When: Where: Medications What When Instructions Unchanged doxazosin (doxazosin 2 mg Tab) 30 EA, 0 Refill(s), TAKE 1 TABLET BY MOUTH EVERY DAY FOR 30 DAYS Contact prescribing physician if questions or concerns Unchanged ketoconazole topical (ketoconazole Top 2% Crm) 60 gm, 0 Refill(s), APPLY TO AFFECTED AREA TWICE A DAY Contact prescribing physician if questions or concerns Unchanged paliperidone (paliperidone 3 mg oral tablet, extended release) 30 EA, 0 Refill(s), TAKE 1 TABLET BY MOUTH EVERY MORNING Contact prescribing physician if questions or concerns Unchanged sertraline (sertraline 50 mg Tab) 30 EA, 0 Refill(s), TAKE 1 TABLET BY MOUTH EVERY DAY Contact prescribing physician if questions or concerns Test Results Urnls Dip Stick Auto w/o Microscopy POC 18946 (03/27/2023) Bilirubin Urine Dipstick - Negative Blood Urine Dipstick - Trace-intact Glucose Urine Dipstick - Negative Ketones Urine Dipstick - Negative Leukocytes Urine Dipstick - Negative Nitrite Urine Dipstick - Negative Protein Urine Dipstick - Negative Specific [place] Urine Dipstick - 1.020 Urine Appearance Urine Dipstick - Clear Urine Color Urine Dipstick - Yellow Urobilinogen Urine Dipstick - Normal 0.2-1 EU/dl pH Urine Dipstick - 7 Allergies No Known Medication Allergies Problems Ongoing - Any problem that you are currently receiving treatment for. Asymptomatic microscopic hematuria Depressive disorder Essential hypertension Hepatitis B Kidney stones Lower urinary tract symptoms (LUTS) Screening PSA (prostate specific antigen) Historical - Any problem that you are no longer receiving treatment for. Overactive bladder Urge incontinence Patient Survey You may receive a survey via text or e-mail asking about your office visit. Please share your experience with us by completing your survey. We appreciate your feedback and thank you for choosing us for your care. Education Materials Cystoscopy Cystoscopy is a procedure that is used to help diagnose and sometimes treat conditions that affect the lower urinary tract. The lower urinary tract includes the bladder and the urethra. The urethra is the tube that drains urine from the bladder. Cystoscopy is done using a thin, tube-shaped instrument with a light and camera at the end (cystoscope). The cystoscope may be hard or flexible, depending on the goal of the procedure. The cystoscope is inserted through the urethra, into the bladder. Cystoscopy may be recommended if you have: ? Urinary tract infections that keep coming back. ? Blood in the urine (hematuria). ? An inability to control when you urinate (urinary incontinence) or an overactive bladder. ? Unusual cells found in a urine sample. ? A blockage in the urethra, such as a urinary stone. ? Painful urination. ? An abnormality in the bladder found during an intravenous pyelogram (IVP) or CT scan. Cystoscopy may also be done to remove a sample of tissue to be examined under a microscope (biopsy). Tell a health care provider about: ? Any allergies you have. ? All medicines you are taking, including vitamins, herbs, eye drops, creams, and xcxs-hnj-pbaxknn medicines. ? Any problems you or family members have had with anesthetic medicines. ? Any blood disorders you have. ? Any surgeries you have had. ? Any medical conditions you have. ? Whether you are or may be . What are the risks? Generally, this is a safe procedure. However, problems may occur, including: ? Infection. ? Bleeding. ? Allergic reactions to medicines. ? Damage to other structures or organs. What happens before the procedure? Medicines Ask your health care provider about: ? Changing or stopping your regular medicines. This is especially important if you are taking diabetes medicines or blood thinners. ? Taking medicines such as aspirin and ibuprofen. These medicines can thin your blood. Do not take these medicines unless your health care provider tells you to take them. ? (more content not included)... Normal [facility] Urine Cytology ([facility])on 05-30-2022 Urine Cytology Diagnosis Info Invalid Interpretation Code [facility] Comment on above: Result Comment: A:Ur ine,Urine:Voided Interpretation - MicroScopic Description - Adequacy - Gross Description Site ID:A color Yellow fixative Alcohol Specimen designated Urine received in alcohol preservative and labeled with the patient?s name, consists of 80ml slightly cloudy yellow fluid. Electronically signed by : on: 03/30/2023 13:18:18 Performed By: #### 1 [id number] ####[facility] [address] [place] [address] Lab Reportson 03-28-2023 Lab Reports [id number]#1.00TIFF Normal [facility] Lab Reports [id number]#1.00TIFF Normal [facility] Physician Referralon 023 Physician Referral [id number]#1.00TIFF Normal [facility] Screenson 03-28-2023 Screens [id number]#1.00TIFF Normal [facility] Screens [id number]#1.00TIFF Normal [facility] Urine Cytology ([facility])on 05-27-2022 Method of Extraction Voided Normal [facility] Comment on above: Performed By: #### 1 [id number] ####[facility] [address] [facility] [place] [address] Number of Jars 1 Invalid Interpretation Code [facility] Comment on above: Performed By: #### 1 [id number] ####[facility] [address] [place] [address] Specimen Urine Normal [facility] Comment on above: Performed By: #### 1 [id number] ####[facility] [address] [place] [address] Type of Service Technical Only Normal [facility] Comment on above: Performed By: #### 1 [id number] ####[facility] [address] [place] [address] Amphetamine Screen Ql (U)Ord ered By: Imad Asaad on 03-06-2023 Amphetamines Ql (U) Negative Negative [facility] Barbiturates [Presence] in U rine by Screen methodOrdered By: Imad Asaad on 03-06-2023 Barbiturates Screen Ql (U) Negative Negative [facility] Benzodiazepines Screen Ql (U )Ordered By: Imad Asaad on 03-06-2023 Benzodiazepines Ql (U) Negative Negative [facility] Benzoylecgonine [Presence] i n Urine by Screen methodOrdered By: Imad Asaad on 03-06-2023 Benzoylecgonine Screen Ql (U) Negative Negative [facility] Cannabinoids [Presence] in U rine by Screen methodOrdered By: Imad Asaad on 03-06-2023 Cannabinoids Screen Ql (U) Positive Negative [facility] Comment on above: These are unconfirme d results and should not be used for legal purposes. Drug Cut-Off Concentration: AMPH 1000 ng/mL AHMET 200 ng/mL ERIKA 200 ng/mL COCM 300 ng/mL OP 300 ng/mL PCP 25 ng/mL THC 20 ng/mL Drug Screen,Urineon 03-06-20 Amphetamine Screen,Urine Negative Normal Negative [facility] Comment on above: Performed By: #### U RDS #### [address] Barbiturate Screen,Urine Negative Normal Negative [facility] Comment on above: Performed By: #### U RDS #### [address] Benzodiazepines Screen,Urine Negative Normal Negative [facility] Comment on above: Performed By: #### U RDS #### [address] Cannabinoid Screen,Urine Positive High Negative [facility] Comment on above: Result Comment: Thes e are unconfirmed results and should not be used for legal purposes. Drug Cut-Off Concentration: AMPH 1000 ng/mL AHMET 200 ng/mL ERIKA 200 ng/mL COCM 300 ng/mL OP 300 ng/mL PCP 25 ng/mL THC 20 ng/mL PERFORMED BY: [place] [id number] PATHOLOGIST [employer]ON TENDER SANDY HART M.D. Performed By: #### U RDS #### [address] Cocaine Screen,Urine Negative Normal Negative [facility] Comment on above: Performed By: #### U RDS #### [place] [address] [place] Opiate Screen,Urine Negative Normal Negative [facility] Comment on above: Performed By: #### U RDS #### [address] Phencyclidine Screen,Urine Negative Normal Negative [facility] Comment on above: Performed By: #### U RDS #### [address] Nitish 03-06-2023 L -------- -------- Specimen: [id number] Received: 03/06/23 Status: EDDIE Milligan Num: [id number] Spec Type: Surgical Subm Dr: Jackie Britton MD Tissues: A Duodenum - Biopsy (DUODENAL BX) B Duodenum - Biopsy (DUODENAL NODULE) C Esophagus Biopsy (ESOPHAGUS) D Colon Biopsy (SIGMOID POLYP) Procedures: HE/8, Gross/Micro L4/4, AE1-AE3 -------- Age/ Patient Sex Location Account Attending Physician -------- Candido Scruggs 42/M [id number] Jackie Britton MD -------- SPEC NUM: [id number] RECD: 03/06/23 STATUS: EDDIE MILLIGAN NUM: [id number] RED: 03/06/23- SUBM DR: Jackie Britton MD ENTERED: 03/06/[address] [facility] [address]: SPEC TYPE: Surgical DEPT: S ORDERED: HE/8, Gross/Micro L4/4, AE1-AE3 ORDERED: HE/8, Gross/Micro L4/4, AE1-AE3 Pathological Diagnosis A. Duodenum, biopsy: - Duodenal mucosa within normal limits B. Duodenum, nodule, biopsy: - Duodenal mucosa with gastric foveolar metaplasia and mild Anna's gland hyperplasia C. 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 D. Colon, sigmoid, polyp, biopsy: - Fragments of tubular adenoma(s) -------- Specimen: [id number] Received: 03/06/23 Status: EDDIE Milligan Num: [id number] Spec Type: Surgical Subm Dr: Jackie Britton MD Tissues: A Duodenum - Biopsy (DUODENAL BX) B Duodenum - Biopsy (DUODENAL NODULE) C Esophagus Biopsy (ESOPHAGUS) D Colon Biopsy (SIGMOID POLYP) Procedures: HE/8, Gross/Micro L4/4, AE1-AE3 -------- Patient: Candido Scruggs [id number] (Continued) -------- Specimen: [id number] Received: 03/06/23 (Continued) Signed (signature on file) Florentino Bapitste MD 03/08/23 1603 -------- Specimen: [id number] Received: 03/06/23 Status: EDDIE Milligan Num: [id number] Spec Type: Surgical Subm Dr: Jackie Britton MD Tissues: A Duodenum - Biopsy (DUODENAL BX) B Duodenum - Biopsy (DUODENAL NODULE) C Esophagus Biopsy (ESOPHAGUS) D Colon Biopsy (SIGMOID POLYP) Procedures: HE/8, Gross/Micro L4/4, AE1-AE3 -------- Patient: Candido Scruggs [id number] (Continued) -------- Specimen: [id number] Received: 03/06/23 (Continued) Clinical Information DEREK, rule out celiac, rule out Hunt's Gross Description A. Received in formalin labeled with the patient's name, date of and duodenal rule out celiac are two hoover tissues measuring 0.1 cm and 0.6 x 0.3 x 0.2 cm. Entirely submitted in one cassette labeled A1. B. Received in formalin labeled with the patient's name, date of and duodenal nodule are two hoover tissues measuring 0.1 cm and 0.3 cm. Entirely submitted in one cassette labeled B1. C. Received in formalin labeled with the patient's name, date of and esophagus rule out Hunt's are two hoover tissues measuring 0.2 cm and 0.4 x 0.3 x 0.2 cm. Entirely submitted in one cassette labeled C1. D. Received in formalin labeled with the patient's name, date of and sigmoid polyp are two hoover tissues averaging 0.5 x 0.5 x 0.3 cm. Entirely submitted in one cassette labeled D1. Microscopic Description A. Two H E slides reviewed. The microscopic examination confirms the diagnosis. B. Two H E slides reviewed. The microscopic examination confirms the diagnosis. C. Two H E slides reviewed. The microscopic examination confirms the diagnosis. D. Two H E slides reviewed. The microscopic examination confirms the diagnosis. CPT Codes 70163r9 -------- -------- Specimen: [id number] Received: 03/06/23 Status: EDDIE Milligan Num: [id number] Spec Type: Surgical Subm Dr: Jackie Britton MD Tissues: A Duodenum - Biopsy (DUODENAL BX) B Duodenum - Biopsy (more content not included)... Normal [facility] Physician [facility] Opiates [Presence] in Urine by Screen methodOrdered By: Jackie Britton on 03-06-2023 Opiates Screen Ql (U) Negative Negative [facility] Phencyclidine Screen Ql (U)O rdered By: Jackie Britton on 03-06-2023 Phencyclidine Ql (U) Negative Negative [facility] HIV 1/O/2 Antigen/Antibodyon 02-01-2023 HIV Screen 4th Generation Non-Reactive Normal Non Reactive [facility] Physician [facility] Comment on above: Order Comment: Reaso n for Exam Hepatitis B infection without delta agent without hepatic co Result Comment: HIV Negative HIV-1/HIV-2 antibodies and HIV-1 p24 antigen were NOT detected. There is no laboratory evidence of HIV infection. Performed at: [facility] [place] [address] [place], [place] [id number] Lease Examiner: Justin More PhD, Phone: [phone] PERFORMED BY: [place] [id number] PATHOLOGIST [employer] TENDER SANDY HART M.D. Performed By: #### H AABT, HCBIGM, HBSAB, HDAB, HIV SCREEN, HBCAB, HBSAG, HCV RX PCR, HBV PCR #### [facility] , HIV 1 and HIV-2 antibody ass ay with HIV-1 p24 antigen detectionOrdered By: Jackie Britton on 02-01-2023 HIV 1+2 Ab+HIV1 p24 Ag IA Ql Non-Reactive Non Reactive [facility] Comment on above: HIV NegativeHIV-1/HI V-2 antibodies and HIV-1 p24 antigen were NOTdetected. There is no laboratory evidence of HIV infection.Performed at: [facility] [address] [id number] Director: Justin More PhD, Phone: [phone] Hep B Real-Time PCR, Quanton 02-01-2023 HBV As IU/mL Not detected Normal . [facility] Comment on above: Order Comment: Reaso n for Exam Hepatitis B infection without delta agent without hepatic co Performed By: #### H AABT, HCBIGM, HBSAB, HDAB, HIV SCREEN, HBCAB, HBSAG, HCV RX PCR, HBV PCR #### [facility] , Log10 HBV (As IU/mL) Normal . [facility] Comment on above: Order Comment: Reaso n for Exam Hepatitis B infection without delta agent without hepatic co Result Comment: Resu lt Units: log10 IU/mL Unable to calculate result since non-numeric result obtained for component test. Performed By: #### H AABT, HCBIGM, HBSAB, HDAB, HIV SCREEN, HBCAB, HBSAG, HCV RX PCR, HBV PCR #### [facility] , Test Information: Normal . [facility] Comment on above: Order Comment: Reaso n for Exam Hepatitis B infection without delta agent without hepatic co Result Comment: The reportable range for this assay is 10 IU/mL to 1 billion IU/mL. Performed at: [address] [id number] Lease Examiner: Ishaan Montoya MD, Phone: [phone] PERFORMED BY: [address] [place] [address] PATHOLOGIST [employer] TENDER SANDY HART M.D. Performed By: #### H AABT, HCBIGM, HBSAB, HDAB, HIV SCREEN, HBCAB, HBSAG, HCV RX PCR, HBV PCR #### [facility] , Hep C Ab wRfx to Qnt PCRon 0 02-01-2023 Hepatitis C Virus Antibody Non-Reactive Normal Non Reactive [facility] Comment on above: Order Comment: Reaso n for Exam Hepatitis B infection without delta agent without hepatic co Performed By: #### H AABT, HCBIGM, HBSAB, HDAB, HIV SCREEN, HBCAB, HBSAG, HCV RX PCR, HBV PCR #### [facility] , Interpretation Hepatitis C Normal . [facility] Comment on above: Order Comment: Reaso n for Exam Hepatitis B infection without delta agent without hepatic co Result Comment: Not infected with HCV unless early or acute infection is suspected (which may be delayed in an immunocompromised individual), or other evidence exists to indicate HCV infection. Performed By: #### H AABT, HCBIGM, HBSAB, HDAB, HIV SCREEN, HBCAB, HBSAG, HCV RX PCR, HBV PCR #### [facility] , Hepatitis A Antibody Totalon 02-01-2023 Hepatitis A Antibody Total Positive Critically abnormal Negative [facility] Comment on above: Order Comment: Reaso n for Exam Hepatitis B infection without delta agent without hepatic co Result Comment: Comm ent: The HAV total antibody assay detects both IgG and IgM but does not differentiate between them. A negative result suggests susceptibility to infection. A positive result could be due to vaccination, previously resolved infection or active infection. Testing for HAV IgM should be performed if active HAV infection is suspected. [facility] offers profiles that will automatically reflex positive HAV total antibody results to IgM (e.g., panel #[id number] HAV Antibody w/ Rfx). Performed By: #### H AABT, HCBIGM, HBSAB, HDAB, HIV SCREEN, HBCAB, HBSAG, HCV RX PCR, HBV PCR #### [facility] , Hepatitis A virus Ab [Presen ce] in Serum by ImmunoassayOrdered By: Jackie Britton on 02-01-2023 HAV Ab IA Ql (S) Positive Negative [facility] Comment on above: Comment: The HAV tot al antibody assay detects both IgG andIgM but does not differentiate between them. A negativeresult suggests susceptibility to infection. A positiveresult could be due to vaccination, previously resolvedinfection or active infection. Testing for HAV IgM shouldbe performed if active HAV infection is suspected. [facility] will [facility] reflex positive HAVtotal antibody results to IgM (e.g., panel #[id number] HAVAntibody w/ Rfx). Hepatitis B Core Antibodyon 02-01-2023 Hepatitis B Core Antibody Positive Critically abnormal Negative [facility] Comment on above: Order Comment: Reaso n for Exam Hepatitis B infection without delta agent without hepatic co Performed By: #### H AABT, HCBIGM, HBSAB, HDAB, HIV SCREEN, HBCAB, HBSAG, HCV RX PCR, HBV PCR #### [facility] , Hepatitis B Core Antibody Ig Mon 02-01-2023 Hepatitis B Core Antibody IgM Negative Normal Negative [facility] Comment on above: Order Comment: Reaso n for Exam Hepatitis B infection without delta agent without hepatic co Result Comment: Perf ormed at: [address] [id number] Lease Examiner: Justin More PhD, Phone: [phone] Performed By: #### H AABT, HCBIGM, HBSAB, HDAB, HIV SCREEN, HBCAB, HBSAG,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 and agree. Review of Systems PHQ Score Initial Depression Screen Score: 0 SCORE no fever, chills, malaise, myalgia. no rash/lesions. no chest pain, palpitations, or SOB. no abdominal pain, nausea, vomiting. no unilateral calf swelling, redness, pain Physical Exam Vitals & Measurements HR: 68(Peripheral) RR: 16 BP: 132/80 HT: 69 in HT: 176 cm WT: 93 kg WT: 204.6 lb BMI: 30.02 General: nontoxic, NAD Mouth: moist mucosa Lungs: normal respiratory effort Cardio: regular rate, good distal perfusion Abdomen: nondistended, no suprapubic distention or tenderness, no CVA tenderness Neurologic: Grossly normal Skin: No rashes or suspicious lesions Assessment/Plan New patient referred by MOHINI Moore due to OAB CMP 06/10/22 - BUN 18.0, Crea 0.81 Testosterone 03/08/22 - A1c 01/22/23 - 5.3 1. Lower urinary tract symptoms (LUTS) (R39.9: Unspecified symptoms and signs involving the genitourinary system) mixed picture... c/o weak stream but no hesitancy, straining, intermittency, post-void dribbling. c/o urgency, frequency, and occasional UUI. Pt trialed Detrol LA for one month this summer, no longer taking, felt it helped initially then quit helping. Has been taking Doxazosin 2mg qd, initially started a few years ago, stopped it and then restarted about 3 mos ago. Helped initially but doesn't feel like it's helping as much now. Wakes up to void at 0530. Then has been going q20min. Ongoing, daily for the past 5 yrs. Does drink water and powerade. Avoids energy drinks and pop. Does drink 1 cup of coffee in am only. IPSS 20, QoL 6 Counseled pt on potential OAB/incontinence SEs associated with Trazodone and Sertraline. Pt states OAB sx started prior to starting these medications. Recommended cysto and urodynamics for further evaluation of urinary sx. Provider did not notice no PVR done prior to charting. Pt left before we were able to grab a PVR. Will monitor at future visits. The risks and benefits for cystoscopy have been discussed. The risks include bleeding, infection, and irritation of the bladder and urinary channel, among others. The patient, after being informed ofprocedural details and after questions have been answered, wishes to proceed. Full informed consenthas been obtained. Will order Local anesthesia. -Schedule cysto and uros w/ KML -continue doxazosin for now Ordered: E&M of New Patient Moderate 45-59 Min [id number] 2. Asymptomatic microscopic hematuria (R31.21: Asymptomatic microscopic hematuria) Micro UA 06/10/22 5-10 RBCs however epithelial cells were present. No culture was sent. UA today shows trace-intact blood. Denies gross hematuria. AUA microhematuria risk assessment: age FM <50, M <40 : low smoking hx <10 pack years : low RBCs on UA 3-10 RBCs : low additional risk factors : irritative LUTS yes, chronic and unchanged family hx cancer no occupational exposure no hx chronic indwelling foreign body in urinary tract no previously low risk with no prior imaging/cysto : no, first episode based on the above risk assessment the pt is considered LOW risk. Discussed options. The patient is aware that a distinct etiology of the hematuria may not be clear upon conclusion of the workup. Will initiate hematuria workup to include upper urinary tract imaging, as well as evaluation of the urinary cells with urine cytology and possible a FISH test. A cystoscopy will be scheduled to rule out lower urinary tract pathology. The rationale for this workup has been discussed, and all questions have been answered. Informed consent will be obtained. Prophylacticantibiotics will be given. -Cytology today. already had CT (w/o contrast) earlier this year. scheduling cysto (see #1). Ordered: E&M of New Patient Moderate 45-59 Min [id number] 3. Screening PSA (prostate specific antigen) (Z12.5: Encounter for screening for malignant neoplasmof prostate) PSA: 03/08/22- 0.59 -Will check PSA. did not do WILLI IO today as pt is going to lab immediately after visit to get PSA drawn (offered IO draw but declines) Ordered: E&M of New Patient Moderate 45-59 Min [id number] PSA Screen, Total 4. Kidney stones (N20.0: Calculus of kidney) CT AP wo con 06/10/22 neg for hydron (more content not included)...[facility]:Result Comment: Electronically Signed By: ONRMA LARA PA-C\.br\Date and Time Signed: 03/27/2310:28 EST\.br\Electronically Co-Signed By: Nellie Bwoling\.br\Date and Time Co-Signed: 03/27/23 10:16 EST\.br\Electronically Co-Signed By: Nellie Bowling\.br\Date and Time Co- Signed: 03/27/23 10:18 [id number] Hospital Discharge instructions Patient Education 03/27/2023 10:11:09 Cystoscopy Cystoscopy Cystoscopy is a procedure that is used to help diagnose and sometimes treat conditions that affect the lower urinary tract. The lower urinary tract includes the bladder and the urethra. The urethra is the tube that drains urine from the bladder. Cystoscopy is done using a thin, tube-shaped instrument with a light and camera at the end (cystoscope). The cystoscope may be hard or flexible, depending on the goal of the procedure. The cystoscope is inserted through the urethra, into the bladder. Cystoscopy may be recommended if you have: Urinary tract infections that keep coming back. Blood in the urine (hematuria). An inability to control when you urinate (urinary incontinence) or an overactive bladder. Unusual cells found in a urine sample. A blockage in the urethra, such as a urinary stone. Painful urination. An abnormality in the bladder found during an intravenous pyelogram (IVP) or CT scan. Cystoscopy may also be done to remove a sample of tissue to be examined under a microscope (biopsy). Tell a health care provider about: Any allergies you have. All medicines you are taking, including vitamins, herbs, eye drops, creams, and xoyv-mfp-bdvbrhw medicines. Any problems you or family members have had with anesthetic medicines. Any blood disorders you have. Any surgeries you have had. Any medical conditions you have. Whether you are or may be . What are the risks? Generally, this is a safe procedure. However, problems may occur, including: Infection. Bleeding. Allergic reactions to medicines. Damage to other structures or organs. What happens before the procedure? Medicines Ask your health care provider about: Changing or stopping your regular medicines. This is especially important if you are taking diabetes medicines or blood thinners. Taking medicines such as aspirin and ibuprofen. These medicines can thin your blood. Do not take these medicines unless your health care provider tells you to take them. Taking dzow-wqg-bzygihz medicines, vitamins, herbs, and supplements. Tests You may have an exam or testing, such as: X-rays of the bladder, urethra, or kidneys. CT scan of the abdomen or pelvis. Urine tests to check for signs of infection. General instructions Follow instructions from your health care provider about eating or drinking restrictions. Ask your health care provider what steps will be taken to help prevent infection. These steps may include: ?Washing skin with a germ-killing soap. ?Taking antibiotic medicine. Plan to have a responsible adult take you home from the hospital or clinic. What happens during the procedure? You will be given one or more of the following: ?A medicine to help you relax (sedative). ?A medicine to numb the area (local anesthetic). The area around the opening of your urethra will be cleaned. The cystoscope will be passed through your urethra into your bladder. Germ-free (sterile) fluid will flow through the cystoscope to fill your bladder. The fluid will stretch your bladder so that your health care provider can clearly examine your bladder alonso. Your doctor will look at the urethra and bladder. Your doctor may take a biopsy or remove stones. The cystoscope will be removed, and your bladder will be emptied. The procedure may vary among health care providers and hospitals. What can I expect after the procedure? After the procedure, it is common to have: Some soreness or pain in your abdomen and urethra. Urinary symptoms. These include: ?Mild pain or burning when you urinate. Pain should stop within a few minutes after you urinate. This may last for up to 1 week. ?A small amount of blood in your urine for several days. ?Feeling like you need to urinate but producing only a small amount of urine. Follow these instructions at home: Medicines Take dlcp-qwm-ehzuvve and prescription medicines only as told by your health care provider. If you were prescribed an antibiotic medicine, take it as told by your health care provider. Do notstop taking the antibiotic even if you start to feel better. General instructions Return to your normal activities as told by your health care provider. Ask your health care provider what activities are safe for you. If you were given a sedative during the procedure, it can affect you for several hours. Do not drive or operate machinery until your health care provider says that it is safe. Watch for any blood in your urine. If the amount of blood in your urine increases, call your healthcare provider. Follow instructions from your health care provider about eating or drinking restrictions. If a tissue sample was removed for testing (biopsy) during your procedure, it is up to you to get your test results. Ask your health care provider, or the department that is doing the test, when yourresults will be ready. Drink enough fluid to keep your urine pale yellow. Keep all follow-up visits. This is important. Contact a health care provider if: You have pain that gets worse or does not get better with medicine, especially pain when you urinate. You have trouble urinating. You have more blood in your urine. Get help right away if: You have blood clots in your urine. You have abdominal pain. You have a fever or chills. You are unable to urinate. Summary Cystoscopy is a procedure that is used to help diagnose and sometimes treat conditions that affect the lower urinary tract. Cystoscopy is done using a thin, tube-shaped instrument with a light and camera at the end. After the procedure, it is common to have some soreness or pain in your abdomen and urethra. Watch for any blood in your urine. If the amount of blood in your urine increases, call your healthcare provider. If you were prescribed an antibiotic medicine, take it as told by your health care provider. Do notstop taking the antibiotic even if you start to feel better. This information is not intended to replace advice given to you by your health care provider. Make sure you discuss any questions you have with your health care provider. Document Revised: 01/11/2022 Document Reviewed: 12/10/2020 [employer] Patient Education 2022 [employer]. Follow Up Care 01/16/2023 11:03:28 With:Yessica Larson MD, URL, URO Address: When: Unknown [facility] 11-14-2023 NoteUrology Cystoscopy Cystoscopy is a procedure that is used to help diagnose and sometimes treat conditions that affect the lower urinary tract. The lower urinary tract includes the bladder and the urethra. The urethra is the tube that drains urine from the bladder. Cystoscopy is done using a thin, tube-shaped instrument with a light and camera at the end (cystoscope). The cystoscope may be hard or flexible, depending on the goal of the procedure. The cystoscope is inserted through the urethra, into the bladder. Cystoscopy may be recommended if you have: ? Urinary tract infections that keep coming back. ? Blood in the urine (hematuria). ? An inability to control when you urinate (urinary incontinence) or an overactive bladder. ? Unusual cells found in a urine sample. ? A blockage in the urethra, such as a urinary stone. ? Painful urination. ? An abnormality in the bladder found during an intravenous pyelogram (IVP) or CT scan. Cystoscopy may also be done to remove a sample of tissue to be examined under a microscope (biopsy). Tell a health care provider about: ? Any allergies you have. ? All medicines you are taking, including vitamins, herbs, eye drops, creams, and zeny-miv-txhkzdy medicines. ? Any problems you or family members have had with anesthetic medicines. ? Any blood disorders you have. ? Any surgeries you have had. ? Any medical conditions you have. ? Whether you are or may be . What are the risks? Generally, this is a safe procedure. However, problems may occur, including: ? Infection. ? Bleeding. ? Allergic reactions to medicines. ? Damage to other structures or organs. What happens before the procedure? Medicines Ask your health care provider about: ? Changing or stopping your regular medicines. This is especially important if you are taking diabetes medicines or blood thinners. ? Taking medicines such as aspirin and ibuprofen. These medicines can thin your blood. Do not take these medicines unless your health care provider tells you to take them. ? Taking kmdl-udg-tuwrjfv medicines, vitamins, herbs, and supplements. Tests You may have an exam or testing, such as: ? X-rays of the bladder, urethra, or kidneys. ? CT scan of the abdomen or pelvis. ? Urine tests to check for signs of infection. General instructions ? Follow instructions from your health care provider about eating or drinking restrictions. ? Ask your health care provider what steps will be taken to help prevent infection. These steps mayinclude: ? Washing skin with a germ-killing soap. ? Taking antibiotic medicine. ? Plan to have a responsible adult take you home from the hospital or clinic. What happens during the procedure? ? You will be given one or more of the following: ? A medicine to help you relax (sedative). ? A medicine to numb the area (local anesthetic). ? The area around the opening of your urethra will be cleaned. ? The cystoscope will be passed through your urethra into your bladder. ? Germ-free (sterile) fluid will flow through the cystoscope to fill your bladder. The fluid will stretch your bladder so that your health care provider can clearly examine your bladder alonso. ? Your doctor will look at the urethra and bladder. Your doctor may take a biopsy or remove stones. ? The cystoscope will be removed, and your bladder will be emptied. The procedure may vary among health care providers and hospitals. What can I expect after the procedure? After the procedure, it is common to have: ? Some soreness or pain in your abdomen and urethra. ? Urinary symptoms. These include: ? Mild pain or burning when you urinate. Pain should stop within a few minutes after you urinate. This may last for up to 1 week. ? A small amount of blood in your urine for several days. ? Feeling like you need to urinate but producing only a small amount of urine. Follow these instructions at home: Medicines ? Take xxcu-lpx-muaqdps and prescription medicines only as told by your health care provider. ? If you were prescribed an antibiotic medicine, take it as told by your health care provider. Do not stop taking the antibiotic even if you start to feel better. General instructions ? Return to your normal activities as told by your health care provider. Ask your health care provider what activities are safe for you. ? If you were given a sedative during the procedure, it can affect you for several hours. Do not drive or operate machinery until your health care provider says that it is safe. ? Watch for any blood in your urine. If the amount of blood in your urine increases, call your health care provider. ? Follow instructions from your health care provider about eating or drinking restrictions. ? If a tissue sample was removed for testing (biopsy) during your procedure, it is up to you to getyour test results. Ask your health care provider, or the department th (more content not included)...[facility] 03-06-2023 History and physical note Author Jackie Britton [facility] March 06, 2023 10:39am Note Date/Time March 06, 2023 1 0:37am [facility] [address] [place] [address] Gastroenterology H&P Signed Patient: Candido Scruggs MR#: [id number] : 1980 Acct:[id number] Age/Sex: 42 / M Adm Date: 3 Loc: Room: Type: [facility] Attending Dr: Jackie Britton MD Copies to: MD Norma Borden APRN, [employer] OPERATOR~ Date of Service: 03/06/2023 HISTORY & PHYSICAL: Patient's history with special attention to the cardiovascular, pulmonary systems and the current problem was reviewed with the patient immediately prior to the procedure. Present medications and doses reviewed in the EMR. Allergies and pertinent laboratory tests were also reviewedat this time in the EMR. The physical examination, as below, was then performed. Indication, assessment and HPI: 42-year-old man here for EGD/colonoscopy for evaluation of iron deficiency anemia Family history of GI malignancy? No PHYSICAL EXAMINATION Mouth and Pharynx : Moist mucus membranes, normal dentition Cardiac: Regular rate, regular rhythm Pulmonary: Clear to auscultation bilaterally, no wheezing Neurological: Alert and oriented x3, no focal deficits noted Abdomen: Abdomen soft, non-tender REVIEW OF SYSTEMS Constitutional: Denies malaise, fevers Cardiovascular: Denies chest pain, palpitations Respiratory: Denies shortness of breath, wheezing Gastrointestinal: Per HPI Genitourinary: Denies dysuria, polyuria Musculoskeletal: Denies joint swelling, joint stiffness Neurological: Denies numbness, tingling Integumentary: Denies rashes, skin lesions Endocrine: Denies fatigue, weight loss Written informed consent obtained from the patient. Risks (including but not limited to perforation, infection, bloating, bleeding, need for emergent surgeryand loss of life), benefits and alternatives explained and questions answered. The patient verbalized understanding. Based on history patient is an appropriate candidate for the procedure. Jackie Britton M.D. Documented By: Jackie Britton MD 03/06/23 103 Signed By: <Electronically signed by Jackie Britton MD> 03/06/23 1039 [facility] Work Phone: [phone] 889-175510-24-2023 [facility]* Encounter Date Diagnosis Assessment Notes Treatment Notes Treatment Clinical Notes Jan, Low hemoglobin (ICD-10 - D64.9) Jan, Hepatitis B infection without delta agent without hepatic coma, unspecified chronicity (ICD-10 - B19.10) Jan, Iron deficiency (ICD-10 - E61.1) [facility] [employer] Other 09-08-2023 Evaluation note* Encounter Date Diagnosis Assessment Notes Treatment Notes Treatment Clinical Notes Jan, Low hemoglobin (ICD-10 - D64.9) Jan, Impaired fasting glucose (ICD-10 - R73.01) [employer] Other 08-30-2023 Evaluation note* Encounter Date Diagnosis Assessment Notes Treatment Notes Treatment Clinical Notes Dec, Overactive bladder (ICD-10 - N32.81) Discussed with pt symptoms. He notes some benefit will increase dose and pt agrred for referral for further work-up for this. Referral placed. Discussed decreasing intake near bedtime. Avoid any alcohol. Monitor symptoms with medicaiton. Pt verbalizes understanding and agrees with plan of care. Dec, Wellness examination (ICD-10 - Z00.00) Personalized health advice was given to the beneficiary including a written plan for screenings discussed and provided. Advanced care planning reviewed and/or information given as requested. Additional counseling was provided here today in regards to general topics regarding health education were discussed in detail. All preventative issues were discussed including remaining a nonsmoker, colorectal screening, the importance of proper sleep for brain health maintenance, maintaining a heart-healthy balanced diet, recognizing and addressing signs of anxiety and depression, maintaining positive relationships with family and friends. Dec, Acute right-sided low back pain with right-sided sciatica (ICD-10 - M54.41) Clinical presentation is consistent with back pain with sciatica. Rx sent, take as directed. Recommended ice/warm compresses to affected area as directed. Rest. Stretches as tolerated. Advance activity as tolerated. Immediate eval if warning s/s of intractable pain, fevers, loss of motor or sensory function, bowel or bladder incontinence. F/u if new/worsening symptoms despite tx. Pt verbalizes understanding and agrees with tx plan. Pt ambulated out by self. Dec, Tendinitis of left elbow (ICD-10 - M77.8) Discussed with patient that symptoms and exam are consistent with lateral epicondylitis. Discussed treatment options icluding steriod burst, ice, and NSAIDs and Tylenol. Directed on use of medrol dose nathan. Discussed with patient to use ice for 20 minute intervals 3-4 times per day. Educated patient on strenghtening exercises to perform 2-3 times per day. Also suggested to use a tennis elbow brace during working hours to exert pressue on the area. Discussed with patient that that if symptoms worsen, change or show no improvement to follow-up. He verbalizes understnading and agrees to plan of care. Dec, Screening for metabolic disorder (ICD-10 - Z13.228) will call lab and diagnostic results and recommendations Dec, Screening for deficiency anemia (ICD-10 - Z13.0) Dec, Screening for lipid disorders (ICD-10 - Z13.220) [employer] Other [facility] [employer] Other Evaluation noteNo assessment information available [facility] Work Phone: Evaluation note* Diagnosis Onset Date Resolution Status Lower back pain acute Muscle spasm acute Right shoulder tendinitis [place] Tooth pain acute [facility] Work Phone: Evaluation note* Diagnosis Onset Date Resolution Status Muscle spasm acute Right shoulder pain acute Substance abuse acute Heat exposure acute [facility] Work Phone: Evaluation note* Diagnosis Onset Date Resolution Status Depression acute Mood disorder acute PTSD (post-traumatic stress disorder) acute [facility] Work Phone: Evaluation note* Diagnosis Onset Date Resolution Status Admit Date Hypertension acute June 10:07am Mood disorder acute July 112024 10:07am Overactive bladder acute Februa 2024 10:07am Polysubstance (excluding opioids) dependence acute June 10:07am PTSD (post-traumatic stress disorder) acute July 11 10:07am Wellness examination acute 2024 10:07am [facility] Work Phone: Hisnnfu general Narrative - Reported* Type Description Date Medical History HTN Medical History DEPRESSION Medical History ALCOHOLIC Medical History MARIJUANA USE Medical History Hepatitis B Surgical History Broken jaw x 2 Surgical History finger I&D 2015 Hospitalization History see above Hospitalization History [facility] cholecystitis/elevat ed LFTs/ab pain [facility] Other Hismiav general Narrative - Reported* Type Description Date Medical History HTN Medical History DEPRESSION Medical History ALCOHOLIC Medical History MARIJUANA USE Medical History Hepatitis B Medical History iron deficiency anemia Surgical History Broken jaw x 2 Surgical History finger I&D 2015 Hospitalization History see above Hospitalization History [facility] cholecystitis/elevat ed LFTs/ab pain [facility] Other Hospital course Narrative No data available for this section [facility] Hospital Discharge instructions Additional Instructions DISCHARGE INSTRUCTIONS FOR COLONOSCOPY WHAT TO EXPECT: - You may feel full, gassy or cramping after your procedure. In some cases, this may be from a few hours to a day. Walking may help relieve the discomfort. - If you have polyp(s) removed you may note some minor bloody discharge after your first bowel movements. - You should begin to recover from anesthesia within 1 hour of the procedure, however may feel groggy for the next 24 hours. DO's AND DON'Ts: - Call your doctor right away if you have a hard abdomen, severe pain, are passing lots of bright red blood or clots. - Call your doctor if you develop any rashes, hives or difficulty breathing. - Let your doctor know if you have not had a bowel movement by 3 days after your procedure. - If you take 81 mg aspirin for your heart it is safe to resume this medication. - If you take other blood thinner medications your doctor will instruct you when these can safely be resumed. - Do NOT drive for 24 hours. - Do NOT operate machinery such as power tools, [employer] mowers, snow blowers, sewing machines, etc. for 24 hours. - Avoid alcoholic beverages and drugs for allergies, nerves, or sleep. - Do NOT stay alone. Do NOT leave your child unattended. - Do NOT make important personal or business decisions or sign any legal documents. - Eat solid foods and drink liquids in smaller amounts than usual until normal appetite returns. If you should experience an upset stomach, liquids high in sugar content (soda, Rhett-Aid, non-acid juices) are recommended. - You can resume normal activities tomorrow. FOLLOW UP & RECOMMENDATIONS: -Repeat colonoscopy based on polyp pathology -Will arrange for Capsule endoscopy -Follow up pathology -Notify the doctor if you have any problems. -Office number [phone]. [facility] Work Phone: Hospital Discharge instructions No data available for this section [facility] Orders* Referral to Psychiatry Time Frame: 03/05/24, Location: None Selected [facility] Work Phone: Progress note No data available for this section [facility] Summary Purpose Family History Relationship Condition Age at Onset Recorded Date/T nelson Not Specified Malignant neoplasm of breast Unknown Relationship Condition Age at Onset Recorded Date/T nelson Not Specified Malignant neoplasm of breast Unknown Not Specified Diabetes mellitus Unknown Unknown Relationship Condition Age at Onset Recorded Date/T nelson mother Malignant neoplasm of breast Unknown mother Diabetes mellitus Unknown Unknown Advance Directives Advance Directive Response Recorded Date/ Time Advance Directives No May 30, 2017 7:08pm Advance Directive Response Recorded Date/ Time Advance Directives No May 30, 2017 6:08pm Reason for Referral Reason evaluate Diagnosis 1 Overactive bladder ( N32.81) Referral Organization [facility] Family [facility]in e [facility] Referring Provider First Name Norma Referring Provider Last Name Rohrbacher Referring Provider Specialty Nurse Pract itioner Referred Organization [facility] Referred Address [address],[place], [place],[address] Referred Provider Specialty Urology Referral Priority Routine Reason *Waiting for appt evaluate Diagnosis 1 Low hemoglobin (D64. 9) Diagnosis 2 Hepatitis B infectio n without delta agent without hepatic coma, unspecified chronicity (B19.10) Diagnosis 3 Iron deficiency (E61 .1) Referral Organization [facility] Billy Garcia C chrissy Referring Provider First Name Norma Referring Provider Last Name Leaacheyaneth Referring Provider Specialty Nurse Pract itioner Referred Organization [facility] Gastroenterolo gy Referred Provider Jackie Britton Referred Address [address] [address] ,[place], [place],[address] Referred Provider Specialty Gastroentero logy Referral Priority Routine General Notes Catrina Khan 10:09:10 AM >received today, sent P2P Chief Complaint and Reason for Visit Chief Complaint B19.10 Chief Complaint B19.10 Iron Deficiency Anemia Chief Complaint Right Shoulder Issue [phone] Jaw/Tooth infection Reason for Visit Lower back pain Muscle spasm Right shoulder tendinitis Tooth pain Chief Complaint Right Shoulder Issue [phone] Jaw/Tooth infection Shoulder pain Reason for Visit Lower back pain Muscle spasm Right shoulder tendinitis Tooth pain Chief Complaint Shoulder pain discuss wearing shorts at work Reason for Visit Muscle spasm Right shoulder pain Substance abuse Heat exposure Chief Complaint talk about mental he alth Reason for Visit Depression Mood disorder PTSD (post-traumatic stress disorder) Chief Complaint Admit Date Wellness July 11, 2024 10:07am Reason for Visit Admit Date Hypertension July 11, 2024 10:07am Mood disorder July 11, 2024 10:07am Overactive bladder July 11, 2024 10:07am Polysubstance (excluding opioids) depend ence July 11, 2024 10:07am PTSD (post-traumatic stress disorder) Fe bruary 2024 10:07am Wellness examination February 28th, 2025 10:07am Additional Source Comments (unrecognized sect ion and content) No Status Records FoundNo Status Records FoundNo Status Records FoundNo Status Records FoundNo Status Records Found INFORMATION SOURCE (unrecogn ized section and content) DATE CREATED AUTHOR 07/16/2019 [facility] DATE CREATED AUTHOR AUTHOR'S ORGANIZ ATION 06/12/2022 [facility] DATE CREATED AUTHOR AUTHOR'S ORGANIZ ATION 03/05/2023 [facility] DATE CREATED AUTHOR AUTHOR'S ORGANIZ ATION 08/29/[address] [facility] DATE CREATED AUTHOR AUTHOR'S ORGANIZ ATION 09/20/2023 [facility] REASON FOR VISIT (unrecogniz ed section and content) 1 month Follow uplab results lab resultsReferralReferral Updatesx-ray resultsNoteREFERRAL UPDATEPOSTING SHEETSCHEDULEING CAPSULE AND HUNG UPpatient callct enterographyRefill Care Teams (unrecognized sec tion and content) Team Status: Active Member Role Status Dates Norma Dobbins APRN CRIME SCENE EXAMINER-C Primary Care Provider Active Team Status: Inactive Member Role Status Dates Jackie Britton MD Attending Provider Active Norma Dobbins APRN CRIME SCENE EXAMINER-C Primary Care Provider Active Team Status: Active Member Role Status Dates Minh Short DO Primary Care Provider Active Start: May 29, 2023 Kenyon Sevilla MD Attending Provider Active Start: May 29, 2023 Team Status: Inactive Member Role Status Dates Norma Dobbins APRN CRIME SCENE EXAMINER-Carlos Primary Care Provider, Attending Provider Active Start: July 25, 2023 End: July 25, 2023 Team Status: Inactive Member Role Status Dates Norma Dobbins APRN NP-Carlos Primary Care Provider, Attending Provider Active Start: August 27, 2023 End: August 27, 2023 Team Status: Active Member Role Status Dates Minh Short DO Primary Care Provider Active Start: July 09, 2023 Kenyon Sevilla MD Attending Provider Active Start: July 09, 2023 Team Status: Inactive Member Role Status Dates Norma Dobbins APRN CRIME SCENE EXAMINER-C Primary Care Provider, Attending Provider Active Start: September 17, 2023 End: September 17, 2023 Team Status: Inactive Member Role Status Dates Norma MARTIN Dobbins CRIME SCENE EXAMINER-C Primary Care Provider, Attending Provider Active Start: November 27, 2023 End: November 27, 2023 Team Status: Inactive Member Role Status Dates Norma MARTIN Dobbins CRIME SCENE EXAMINER-C Primary Care Provider, Attending Provider Active Start: March 05, 2024 End: March 05, 2024 Team Status: Inactive Member Role Status Dates Norma MARTIN Dobbins CRIME SCENE EXAMINER-C Primary Care Provider, Attending Provider Active Start: July 11, 2024 End: July 11, 2024 Goals (unrecognized section and content) Goals may be documented in a n alternate section FOR RECORDS PERTAINING TO PATIENTS WHO ARE OR HAVE BEEN ENROLLED IN A CHEMICAL DEPENDENCY/SUBSTANCEABUSE PROGRAM, SOME INFORMATION MAY BE OMITTED. This clinical summary was aggregated from multiple sources. Caution should be exercised in using it in the provision of clinical care. This summary normalizes information from multiple sources, and as a consequence, information in this document may materially change the coding, format and clinical context of patient data. In addition, data may be omitted in some cases. CLINICAL DECISIONS SHOULD BE BASED ON THE PRIMARY CLINICAL RECORDS. [employer] [facility]. provides no warranty or guarantee of the accuracy or completeness of information in this document.
--- NOTE | 2024-08-03 13:08 | ED_ITS ---
HPI - Eye Problem General Chief complaint: Eye Problems Stated complaint: EYE PAIN Time Seen by Provider: 08/03/24 12:55 Source: patient Mode of arrival: walk-in History of Present Illness HPI Narrative: 44-year-old male presents to the emergency department for redness and drainage from his right eye. He thinks he has pinkeye. It started yesterday morning when he woke up but it was mild and was worse today. No history of trauma or fo reign body.. Somebody at work had pinkeye and got sent home early a few days ago. Related Data Previous Rx's ?Medication ?Instructions ?Recorded sulfacetamide sodium 10 % eye drops 2 drp ophthalmic (eye) Q4H #15 mL 08/03/24 Allergies Allergy/AdvReac Type Severity Reaction Status Date / Time morphine Allergy Severe Rash Verified 08/03/24 13:01 Review of Systems ROS Narrative A ten point review of systems is negative except as noted above. PFSH PFSH Social History Little interest or pleasure in doing things: not at all Feeling down, depressed, or hopeless: not at all Exam Narrative Exam Narrative: Nurses note and vital signs reviewed and patient is not hypoxic. General: The patient appears well and in no apparent distress. Patient is resting comfortably on cart. Skin: Warm, dry, no pallor noted. There is no rash noted. Head: Normocephalic, atraumatic Eye: Left eye is normal. Right conjunctiva is injected. No foreign bodies are noted. No periorbital swelling or erythema. Ears, Nose, Mouth, and Throat: oral mucosa is moist. Nares patent. Cardiovascular: Regular Rate and Rhythm Respiratory: Patient is in no distress, no accessory muscle use Back: non-tender GI: Soft and nontender Musculoskeletal: No joint swelling Neurological: A&O, normal speech Psychiatric: Cooperative Constitutional Vital Signs, click to edit/add: Last Vital Signs Temp 98.1 F 08/03/24 12:58 Pulse 86 08/03/24 12:58 Resp 18 08/03/24 12:58 BP 134/91 08/03/24 12:58 Pulse Ox 100 08/03/24 12:58 O2 Del Method Room Air 08/03/24 12:58 Course Vital Signs Vital signs: Vital Signs Temperature 98.1 F 08/03/24 12:58 Pulse Rate 86 08/03/24 12:58 Respiratory Rate 18 08/03/24 12:58 Blood Pressure 134/91 08/03/24 12:58 Pulse Oximetry 100 08/03/24 12:58 Oxygen Delivery Method Room Air 08/03/24 12:58 Temperature 98.1 F 08/03/24 12:58 Pulse Rate 86 08/03/24 12:58 Respiratory Rate 18 08/03/24 12:58 Blood Pressure 134/91 08/03/24 12:58 Pulse Oximetry 100 08/03/24 12:58 Oxygen Delivery Method Room Air 08/03/24 12:58 MDM - Eye Problem MDM Narrative Medical decision making narrative: My clinical impression is that the patient has conjunctivitis and he was prescribed Bleph-10. Treatment diagnosis and follow-up were discussed with the patient. Differential Diagnosis Differential diagnosis: Likely corneal abrasion, conjunctivitis, hyphema and subconjunctival hemorrhage Discharge Plan Discharge Chief Complaint: Eye Problems Clinical Impression: Bacterial conjunctivitis Patient Disposition: Home, Self-Care Time of Disposition Decision: 13:07 Condition: Good Mode of Transportation: Private Vehicle Prescriptions / Home Meds: New sulfacetamide sodium 10 % drops 2 drp ophthalmic (eye) Q4H Qty: 15 0RF Print Language: Moldovan Instructions: Conjunctivitis (ED) Referrals: FREDERICK JEAN-BAPTISTE [Primary Care Provider] - 1 week
== END 2024-08-03 13:16 | disposition home or self-care (01) ==
PROVIDERS: Emergency Provider Emergency Medicine; PCP Nurse Practitioner Family
DX: H10.89 Other conjunctivitis (principal)
CPT/HCPCS: 99283

== ENCOUNTER 2024-08-06 07:45 | Outpatient (OUT) | payer OTHER, SELFPAY ==
[2024-08-06 08:10] LABS: Basophils Percent Auto 0.5 % (0.2-2.0); Eosinophils Absolute Auto 0.2 10^3/uL (0.0-0.7); Eosinophils Percent Auto 1.8 % (0.9-7.0); Hematocrit 38.1 % (42.0-54.0); Hemoglobin 12.5 g/dL (14.0-18.0); Immature Granulocytes Abs Auto 0.03 10^3/uL (0.00-0.03); Immature Granulocytes Pct Auto 0.4 % (0.0-0.5); Lymphocytes Absolute Auto 2.3 10^3/uL (1.2-3.8); Lymphocytes Percent Auto 27.3 % (20.5-60.0); Mean Corpuscular HGB Conc 32.8 g/dL (29.9-35.2); Mean Corpuscular Hemoglobin 30.7 pg (25.9-34.0); Mean Corpuscular Volume 93.6 fL (80.0-94.0); Mean Platelet Volume 8.2 fL (9.5-13.5); Monocytes Absolute Auto 0.6 10^3/uL (0.3-0.8); Monocytes Percent Auto 6.5 % (1.7-12.0); Neutrophils Absolute Auto 5.4 10^3/uL (1.4-6.5); Neutrophils Percent Auto 63.5 % (43.0-75.0); Platelet Count 297 10^3/uL (150-450); Red Blood Count 4.07 10^6/uL (4.70-6.10); Red Cell Distribution Width 12.5 % (11.0-15.0); White Blood Count 8.5 10^3/uL (4.0-11.0)
[2024-08-06 08:33] LABS: Alanine Aminotransferase 22 U/L (16-63); Albumin Globulin Ratio 1.1; Albumin Level 3.7 g/dL (3.4-5.0); Alkaline Phosphatase 85 U/L (46-116); Aspartate Amino Transferase 18 U/L (15-37); BUN Creatinine Ratio 22.9; Bilirubin Total 0.3 mg/dL (0.2-1.0); Calcium 8.7 mg/dL (8.5-10.1); Carbon Dioxide 28.4 mmol/L (21.0-32.0); Chloride 106 mmol/L (98-107); Chol HDL Ratio 2.4; Cholesterol 155 mg/dL (<=200); Estimated GFR (African America >60 (>=60 mL/min/1.73m^2); Estimated GFR (Non-African Ame >60 (>=60 mL/min/1.73m^2); Globulin 3.5 g/dL; Glucose 85 mg/dL (74-106); HDL Cholesterol 64 mg/dL (40-60); Potassium 4.4 mmol/L (3.5-5.1); Sodium 140 mmol/L (136-145); Total Protein 7.2 g/dL (6.4-8.2); Triglycerides 35 mg/dL (<=150)
== END 2024-08-06 07:46 | disposition home or self-care (01) ==
LOC: LAB 07:46
PROVIDERS: PCP Nurse Practitioner Family; Visit Provider Nurse Practitioner Family
DX: Z00.00 Encounter for general adult medical examination without abnormal findings (principal); I10 Essential (primary) hypertension
CPT/HCPCS: 36415; 80053; 80061; 85025

== ENCOUNTER 2024-11-06 14:13 | Outpatient (OUT) | payer OTHER, SELFPAY ==
--- OUTSIDE RECORDS SUMMARY | 2019-01-30 09:00 | XMS_ITS | Continuity of Care Document ---
Author Organization [facility] Address [address] [place] [address] Phone Care Team Providers Care Route Clerk Name Role Phone Fredy Ortez DDS Unavailable Unavail able Procedures Procedure Date Intraoral-periapical 1st Film 9 Bitewig-single Film Intraoral-periapical 1st Film 9 Bitewig-single Film Limited Oral Eval Extract; Erupted Th/exposted Rt [address] Advance Directives Directive Yes / No Effective Date File Name No Information Encounters Encounter Description Practice Location Reason(s) For Visit Diagnoses Date Provider Providers Copied on Encounter [facility], [address], [place], [id number], tel:[phone] Dental Clinic ER (chief complaint) Encounter for screening for dental disorders [facility]. [address], [place], [id number], [place]. tel:[phone] Family History Family Member Type Diagnosis Age At Onset Mother Problem (finding) Diabetes mellitus Payers Payer name Insurance type Covered democrat ID Authoriza tion(s) Self Pay Cap 09 Social History Type Description Quantity Date Captured Comments Alcohol Use Details Unknown Caffeine Use Details Unknown Tobacco Use Status Current non-smoker Smoking Status Never smoker Non-Smoking Tobacco Use Details : No Details Available : No Details Available Sex Male Sexual Orientation Straight or heterosexual Gender Identity Male Vital Signs Date / Time: Height Weight BMI Pulse Rate Blood Pressure Temperature Respiratory Rate Body Surface Area Head Circumference Head Circ. Percentile Wt./Wilmer. Percentile BMI percentile Pulse Ox Inhaled Ox 1:09 PM 86 /min 121/92 mm[Hg] Chief Complaint And Reason For Visit From encounter dated 01/30/2019 13:00'. ER (chief complaint) Reason For Referral Reason For Referral No Information History Of Present Illness Encounter Date Complaint History Of Prese nt Illness ER Functional Status Date Functional Assessmen t No Information Instructions Date Instruction Additional Infor mation No Information Assessments Type Assessment Date No Information Patient Care Teams Name Effective Dates (start - stop) Status Members No Information
--- OUTSIDE RECORDS SUMMARY | 2024-11-06 14:17 | XMS_ITS | Clinical Summary ---
Author Organization [facility] Address [address] [place] [address] Care Team Providers Care Mosaicist Name Role Phone Norma Dobbins PRINT PROJECT MANAGER Primary Care Provider Allergies No known active allergies Medications doxazosin (Cardura) 4 MG tablet TAKE 1 TABLET BY MOUTH EVERY DAY FOR 90 DAYS 01/10/2023 Active paliperidone (Invega) 3 MG 24 hr tablet Take 3 mg by mouth in the morning. 02/06/2023 Active sertraline (Zoloft) 50 MG tablet Take 50 mg by mouth in the morning. 02/06/2023 Active traZODone (Desyrel) 100 MG tablet TAKE 1 TABLET BY MOUTH EVERYDAY AT BEDTIME NEEDED FOR SLEEP 02/06/2023 Active Active Problems No known active problems Family History Medical History Relation Name Comments Cancer Mother Diabetes Mother Relation Name Status Comments Mother Social History Tobacco Use Types Packs/Day Years Used Date Smoking Tobacco: Former Cigarettes Q uit: 05/2016 Smokeless Tobacco: Never Alcohol Use Standard Drinks/Week Comments Never 0 (1 standard drink = 0.6 oz pur e alcohol) Sex and Gender Information Value Date Recorded Sex Assigned at Not on file Legal Sex Male 8:21 PM EDT Gender Identity Not on file Sexual Orientation Not on file Last Filed Vital Signs Vital Sign Reading Time Taken Comments Blood Pressure - - Pulse - - Temperature 37.2 C (99 F) 02/20/2023 10:27 AM EDT Respiratory Rate - - Oxygen Saturation - - Inhaled Oxygen Concentration - - Weight 90.9 kg (200 lb 6.4 oz) 02/20/2023 10:27 AM EDT Height 175.3 cm (5' 9 ) 02/20/2023 10:27 AM EDT Body Mass Index 29.59 02/20/2023 10:27 AM EDT Plan of Treatment Not on file Insurance [employer] Care Teams Mosaicist Relationship Specialty Start Date End Date Norma Dobbins NP PCP - General Family Medicine 02/20/23
--- OUTSIDE RECORDS SUMMARY | 2024-11-06 14:17 | XMS_ITS | Clinical Summary ---
Author Organization [facility] tem Address [id number] [address] [place] [address] Care Team Providers Care Site Safety Manager Name Role Phone David Sullivan MD Primary Care Provider [phone] Allergies No known active allergies Medications * This document contains information received from the source organization and may not represent a complete record from that organization. diclofenac (VOLTAREN) 75 mg EC tablet Take 75 mg by mouth 2 (two) times a day. Active Active Problems Problem Noted Date Diagnosed Date Suicidal ideation 08/08/2019 Severe recurrent major depre ssion without psychotic features 09/18/2017 Cannabis use disorder, moderate, dependence 12/2017 Methamphetamine use disorder, moderate 8 Depression 09/17/2017 Severe recurrent major depression with psychotic features 06/01/2017 Social History Tobacco Use Types Packs/Day Years Used Date Smoking Tobacco: Never Smokeless Tobacco: Never Tobacco Cessation:Counseling Given: No Alcohol Use Standard Drinks/Week Comments No 0 (1 standard drink = 0.6 oz pur e alcohol) last drink was 11/17/2014 Childcare Answer Date Recorded Childcare Unknown 10/21/2018 Employment Answer Date Recorded Employment Unknown 10/21/2018 Purpose - Life Answer Date Recorded Purpose and direction in life Unknown Sex and Gender Information Value Date Recorded Sex Assigned at Not on file Legal Sex Male 3:17 PM EDT Gender Identity Not on file Sexual Orientation Not on file Last Filed Vital Signs Vital Sign Reading Time Taken Comments Blood Pressure 151/100 08/13/2019 7:27 AM EDT Pulse 80 08/13/2019 7:27 AM EDT Temperature 36.9 C (98.4 F) 08/13/2019 7:27 AM EDT Respiratory Rate 13 08/13/2019 7:27 AM EDT Oxygen Saturation 100% 08/08/2019 7:27 PM EDT Inhaled Oxygen Concentration - - Weight 94.8 kg (209 lb) 08/09/2019 12:10 AM EDT Height 175.3 cm (5' 9 ) 08/09/2019 12:10 AM EDT Body Mass Index 30.86 08/09/2019 12:10 AM EDT Plan of Treatment Not on file Medical Devices Not on file Insurance [employer] Advance Directives * Full Code (Latest Code Status on File) Date Activated Date Inactivated Comments 08/09/2019 1:18 AM 08/13/2019 3:36 PM * Full Code Date Activated Date Inactivated Comments 09/27/2017 11:40 AM 09/27/2017 2:53 PM Care Teams Site Safety Manager Relationship Specialty Start Date End Date David Sullivan MD PCP - General 09/17/17
--- OUTSIDE RECORDS SUMMARY | 2024-11-06 14:17 | XMS_ITS | Clinical Summary ---
Author Organization [facility] Address [address] [place] [id number] Care Team Providers Care Rolling Chair Pusher Name Role Phone David Sullivan MD Primary Care Provider [phone] Allergies No known active allergies Medications nortriptyline (PAMELOR) 10 mg capsuleIndicatio ns:Numbness and tingling of right upper and lower extremity,Facial paresthesia Take 1 capsule by mouth daily at bedtime. 30 capsule 2 07/16/2019 Active Active Problems Problem Noted Date Diagnosed Date Pain in thoracic spine at multiple sites 019 Cannabis use disorder, moderate, dependence 12/2017 Methamphetamine use disorder, moderate 8 Depression 09/17/2017 Severe recurrent major depression with psychotic features 06/01/2017 Family History Relation Status Comments Father Alive Maternal Grandfather Maternal Grandmother Mother Alive Paternal Grandfather Paternal Grandmother Social History Tobacco Use Types Packs/Day Years Used Date Smoking Tobacco: Former Smokeless Tobacco: Never Alcohol Use Standard Drinks/Week Comments Never 0 (1 standard drink = 0.6 oz pur e alcohol) AUDIT-C Answer Date Recorded Q1: How often do you have a drink containing alc ohol? Never 07/16/2019 Average Number of Drinks Not on file 020 Frequency of Binge Drinking Not on file 08/2019 Area Deprivation Index Answer Date Arden rded National Score (1-100), lower number is lower ri sk Not on file 04/20/2020 State Score (1-10), lower number is lower risk N ot on file 04/20/2020 Data from: https://www.neighborhoodatlas.medicine.[facility].edu/. Last address used for calculation Not on file 04/20/2020 Sex and Gender Information Value Date Recorded Sex Assigned at Not on file Legal Sex Male 10:28 AM EST Gender Identity Not on file Sexual Orientation Not on file Last Filed Vital Signs Vital Sign Reading Time Taken Comments Blood Pressure 120/72 07/16/2019 1:53 PM EST man ual Pulse 80 07/16/2019 1:53 PM EST Temperature - - Respiratory Rate 16 07/16/2019 1:53 PM EST Oxygen Saturation 98% 06/25/2019 11:06 AM EST Inhaled Oxygen Concentration - - Weight 97.5 kg (215 lb) 07/16/2019 1:53 PM EST Height 175.3 cm (5' 9 ) 06/25/2019 11:06 AM EST Body Mass Index 31.75 06/25/2019 11:06 AM EST Plan of Treatment Health Maintenance Due Date Last Done Comments Anxiety Screening 1996 Depression Screening 1996 HIV Screening 1996 Hepatitis C Screening 1996 DTaP,Tdap,Td Vaccine (1 - Tdap) 1997 Hepatitis B Vaccine (1 of 3 - 19+ 3-dose series) 1997 Lipid Screening 09/18/2022 09/18/2017 CT Colonography 2023 Cologuard (FIT-DNA) 2023 Colonoscopy 2023 Colorectal Cancer Screening 2023 Diabetes Screening 2023 09/18/2017, 09/17/2017 Fecal Occult Blood 2023 Sigmoidoscopy 2023 Covid-19 Vaccine ( season) 2024 Influenza Vaccine (Season Ended) 2025 Insurance [employer] Care Teams Rolling Chair Pusher Relationship Specialty Start Date End Date David Sullivan MD PCP - General Family Medicine 06/19/19
--- NOTE | 2024-11-06 15:06 | P.CN_ITS ---
Consult Note: HPI Data of Consult Patient: known to practice within the last 3 years Consult date: 11/06/24 Requesting Physician: Norma Howard NP Primary Care Provider: FREDERICK JEAN-BAPTISTE Consult Narrative Reason for consult: back pain Narrative: 42yom who presents for evaluation. Notes worsening midback pain, low back pain. Undergoes chiropractic therapy, which he has done for >6 weeks. prior imaging of lumbar spine consistent with multilevel degenerative changes. does not utilize tylenol or nsaids as they are not beneficial, does utilize THC and kratom. pain today 6/10 entire back and bilateral knees. pain increasing with activity. family hx of OA, RA, and fibromyalgia. cc:: CC: Norma Howard NP Review of Systems ROS Status of ROS 10 or more systems reviewed and unremark able except as noted in history and below PFSH PFSH Social History Little interest or pleasure in doing things: not at all Feeling down, depressed, or hopeless: not at all Meds Home Medications and Allergies Home Medications ?Medication ?Instructions ?Recorded ?Confirmed ?Type sulfacetamide sodium 10 % eye drops 2 drp ophthalmic ( eye) Q4H #15 mL 08/03/24 Rx Allergies Allergy/AdvReac Type Severity Reaction Status Date / Time morphine Allergy Severe Rash Verified 08/03/24 13:01 Exam Constitutional Documenting provider has reviewed patient's vital signs: yes Common normals: no apparent distress, oriented x3, healthy appearing, alert and well nourished General appearance: cooperative [facility] Common normals: normocephalic, hearing grossly normal bilaterally and moist oral mucous membranes Head and scalp: normocephalic Eye Common normals: PERRL Pupil: PERRL Neck & C-Spine Common normals: full ROM General: normal visual inspection Chest Common normals: inspection of chest normal Respiratory Common normals: normal respiratory effort, no retractions and no use of accessory muscles Back & Pelvis Thoracic spine/upper back: pain with ROM and thoracic spinal tenderness Lumbar spine/lower back: ROM limited, pain with ROM, lumbar spinal tenderness and straight leg raise negative bilaterally Other: positive facet loading Neuro Common normals: oriented x3 Sensorium/orientation: alert Psych Common normals: mental status grossly normal, thought process normal, cooperative, affect normal, speech normal and activity/motor behavior normal Speech: normal speech Thought process: normal thought process Results Additional Findings Additional findings: If on a controlled substance or opioids, I have checked an [place]AR[place] report on this patient and there are no aberrancies noted in the prescribing history.??If on a controlled substance or opioid a drug screen was completed and reviewed within the last year, and if there has not been a drug screen completed we ordered one today to monitor higher risk, state monitored pain medication use. As part of providing excellent, safe, comprehensive care, the following was completed at our patient's visit: 1. A medication reconciliation and review to ensure accurate knowledge of current/active medications, including asking our patients to inform us about any [id number] medications or herbal remedies/nutritional supplements/alternative remedies. 2. A review to specifically ensure our patients have had annual screening for screening for depression, screening for tobacco use, and screening for unhealthy alcohol use. For concerning screenings had a discussion with the patient, provided patient education, and recommended follow-up with primary care provider when appropriate. If patient noted with a risk of falling, they received education on strength, gait, and balance training to prevent future risk of falling. Portions of this note may have been carried over from the previous visit and updated as appropriate. Please note this office utilizes paper charting in addition to the electronic medical record. A list of current medications, vitals, and PMH is available there as the clinical staff outside of myself do not have access to [employer] charting during the clinic day operations. As part of providing quality comprehensive care the current medications, vitals, and PMH were reviewed in the paper chart. Assessment and Plan Assessment and Plan (1) Lumbar spondylosis: Assessment and Plan: The patient has had over 3 months of moderate to severe low back pain with functional impairment and inadequate response to conservative care The Oswestry Disability Index was completed, and the patient scored a 60%.? The patient noted the following:?? moderate to severe pain impacting ADLs, sitting, standing walking, sleeping, social life, travel We discussed the risks and benefits of the procedure with the patient, and we are NOT planning on using sedation as outlined in the guidelines from Medicare unless there is a documented reason that sedation would be strongly recommended.?? ?The procedure will be completed with fluoroscopic guidance.? Plan bilateral L4-5 L5-s1 mbb x2 for axial facet mediated low back pain in consideration of RFA f/u with PCP for evaluation of RA, can refer to rheumatology for further evaluation. questionable FM with chronic diffuse pain start mobic 7.5mg BID PRN pain/spasms f/u after each injection
== END 2024-11-06 14:14 | disposition home or self-care (01) ==
LOC: PM 14:14
PROVIDERS: PCP Nurse Practitioner Family; Visit Provider Nurse Practitioner
DX: M47.816 Spondylosis without myelopathy or radiculopathy, lumbar region (principal)
CPT/HCPCS: G0463